=== PATIENT | male | born 1975 | race Hispanic/Latino ===

== ENCOUNTER 2017-09-21 19:21 | Emergency (ER) | payer OTHER ==
[2017-09-21 20:00] LABS: Urine Blood 1+ (NEG); Urine Glucose 2+ (NEG); Urine Protein 2+ (NEG)
[2017-09-21] MEDS ORDERED: NA CHLORIDE 0.9% 1,000 ML ONE (20:26)
[2017-09-21] MEDS ORDERED: INSULIN -REGULAR HUMAN 50 UNIT/0.5 ML ML ONE ×3 (20:28→21:29)
[2017-09-21 20:40] LABS: Potassium 4.3 mEq/L (3.6-5.0)
[2017-09-21 20:43] LABS: Absolute Lymphocytes (CBC) 1.8 K/uL (0.7-4.9); Absolute Monocytes 0.7 K/uL (0.1-1.3); Absolute Neutrophil 5.1 K/uL (1.8-8.0); Basophils % 0.6 % (0-1.3); Eosinophils % 1.2 % (0-4.4); Hematocrit 38.2 % (39.6-49.0); MCH 28.6 pg (27.0-35.0); MCV 85.3 fL (80-100); MPV 8.2 fL (7.6-11.3); Monocytes % 8.8 % (3.3-12.3); RBC Red Blood Cell Count 4.48 M/uL (4.33-5.43)
[2017-09-21] MEDS ORDERED: DOXYCYCLINE 100 MG CAP PO ONE (20:58)
[2017-09-21] MEDS ORDERED: CLINDAMYCIN HCL 150 MG CAP ONE (20:58)
[2017-09-22 00:43] LABS: Potassium 3.6 mEq/L (3.6-5.0)
--- NOTE | 2017-09-22 00:57 | EDPHYS ---
Physician Documentation [facility] Name: Isiah Kidd Age: 42 yrs Sex: Male : 1975 Arrival Date: 09/21/2017 Time: 19:25 Bed 14 Private MD: ED Physician Giovanni Morton HPI: 09/21 20:54 This 42 yrs old Male presents to ER via Ambulatory with complaints of High kb Blood Sugar, Wound Check. 20:54 The patient presents with ulceration. The complaints affect the right foot. Context: kb The problem was sustained at an unknown location, the patient can fully bear weight, the patient is able to ambulate. Onset: The symptoms/episode began/occurred at an unknown time. noticed it today. Modifying factors: The symptoms are alleviated by nothing, the symptoms are aggravated by nothing. Associated signs and symptoms: Pertinent negatives: calf tenderness, fever, nausea, numbness, rash, swelling, tingling, vomiting, warmth, weakness. Severity of symptoms: At their worst the symptoms were moderate, in the emergency department the symptoms are unchanged. The patient has experienced similar episodes in the past. The patient has not recently seen a physician. Historical: - Allergies: 19:40 No Known Allergies; ak1 - Home Meds: 19:40 metformin 1,000 mg Oral tr24 1 tab BID [Active]; ak1 - PMHx: 19:40 Diabetes - NIDDM; ak1 - PSHx: 19:40 Right great toe ulcer hx; ak1 - Immunization history:: Adult Immunizations unknown. - Social history:: Smoking status: Patient/guardian denies using tobacco. ROS: 20:56 Constitutional: Negative for fever, chills, and weight loss, ENT: Negative for injury, kb pain, and discharge, Neck: Negative for injury, pain, and swelling, Cardiovascular: Negative for chest pain, palpitations, and edema, Respiratory: Negative for shortness of breath, cough, wheezing, and pleuritic chest pain, Abdomen/GI: Negative for abdominal pain, nausea, vomiting, diarrhea, and constipation, Back: Negative for injury and pain, Neuro: Negative for headache, weakness, numbness, tingling, and seizure. 20:56 Skin: Positive for ulceration, of the plantar aspect of right first toe. Exam: 20:56 Constitutional: This is a well developed, well nourished patient who is awake, alert, kb and in no acute distress. Head/Face: Normocephalic, atraumatic. Chest/axilla: Normal chest wall appearance and motion. Nontender with no deformity. No lesions are appreciated. Cardiovascular: Regular rate and rhythm with a normal S1 and S2. No gallops, murmurs, or rubs. Normal PMI, no JVD. No pulse deficits. Respiratory: Lungs have equal breath sounds bilaterally, clear to auscultation and percussion. No rales, rhonchi or wheezes noted. No increased work of breathing, no retractions or nasal flaring. Abdomen/GI: Soft, non-tender, with normal bowel sounds. No distension or tympany. No guarding or rebound. No evidence of tenderness throughout. MS/ Extremity: Pulses equal, no cyanosis. Neurovascular intact. Full, normal range of motion. Neuro: Awake and alert, GCS 15, oriented to person, place, time, and situation. Cranial nerves II-XII grossly intact. Motor strength 5/5 in all extremities. Sensory grossly intact. Cerebellar exam normal. Normal gait. 20:59 Skin: lesion(s), noted, and can be described as ulcerated, located on the plantar kb aspect of right first toe. Vital Signs: 19:40 BP 91 / 65; Pulse 93; Resp 18; Temp 98.8(TE); Pulse Ox 98% on R/A; Weight 74.84 kg (R); ak1 Height 5 ft. 11 in. (180.34 cm) (R); Pain 3/10; 22:33 BP 147 / 92; Pulse 88; Resp 18; Pulse Ox 99% on R/A; Pain 0/10; ea 23:00 BP 133 / 93; Pulse 97; Resp 18; Pulse Ox 99% ; ea 09/22 00:00 BP 129 / 88; Pulse 92; Resp 18; Pulse Ox 100% ; ea 01:00 BP 132 / 90; Pulse 90; Resp 18; Temp 97.8(O); Pulse Ox 100% on R/A; Pain 0/10; ea 09/21 19:40 Body Mass Index 23.01 (74.84 kg, 180.34 cm) ak1 MDM: 09/21 20:11 Patient medically screened. kb 20:59 Data reviewed: vital signs, nurses notes. Data interpreted: Pulse oximetry: on room air kb is 98 %. Interpretation: normal. 09/21 19:59 Order name: Urine Dipstick--Ancillary (enter results); Complete Time: 20:18 em1 09/21 20:00 Order name: Basic Metabolic Panel kb 09/21 20:01 Order name: Basic Metabolic Panel; Complete Time: 20:43 EDMS 09/21 20:11 Order name: CBC with Diff; Complete Time: 20:45 kb 09/22 00:27 Order name: Basic Metabolic Panel; Complete Time: 00:44 em1 09/21 19:53 Order name: Blood Glucose Level; Complete Time: 19:58 kb 09/21 21:48 Order name: Blood Glucose Level; Complete Time: 21:57 kb 09/21 22:25 Order name: Recheck Vital Signs; Complete Time: 22:34 snw 09/21 22:54 Order name: Foot Right 3 View XRAY snw Administered Medications: 20:40 Drug: Clindamycin 300 mg Route: PO; ea 21:51 Follow up: Response: No adverse reaction ea 20:40 Drug: Doxycycline 100 mg Route: PO; ea 21:51 Follow up: Response: No adverse reaction ea 20:47 Drug: NS 0.9% 1000 ml Route: IV; Rate: 1000 ml; Site: right antecubital; ea 21:50 Follow up: Response: No adverse reaction; IV Status: Completed infusion ea 21:32 Drug: Insulin Regular Human 5 units {Co-Signature: jd3 (Justen Baugh RN).} Route: ea IVP; Site: right antecubital; 09/22 00:57 Follow up: Response: No adverse reaction ea Point of Care Testing: Blood Glucose: 09/21 19:57 Blood Glucose: 456 mg/dL; ak1 21:57 Blood Glucose: 276 mg/dL; ea Ranges: Critical Glucose Levels:Adult <50 mg/dl or >400 mg/dl <40 mg/dl or >180 mg/dl Disposition: 09/22 01:38 Co-signature as Attending Physician, Giovanni Morton MD. pkliane Disposition: 09/22/17 00:56 Discharged to Home. Impression: Hyperglycemia, unspecified, Unspecified open wound of right great toe without damage to nail. - Condition is Stable. - Discharge Instructions: Skin Ulcer, Hyperglycemia, [id number]-Gziq, Type 2 Diabetes Mellitus, Adult, Ovmn-az-Aeag. - Prescriptions for Clindamycin HCl 300 mg Oral Capsule - take 1 capsule by ORAL route every 6 hours for 10 days; 40 capsule. Keflex 500 mg Oral Capsule - take 1 capsule by ORAL route every 8 hours for 10 days; 30 capsule. Metformin 1,000 mg Oral Tablet - take 1 tablet by ORAL route every 12 hours with morning and evening meals; 20 tablet. - Medication Reconciliation Form, Thank You Letter, Antibiotic Education, Prescription Opioid Use form. - Follow up: Emergency Department; When: As needed; Reason: Worsening of condition. Follow up: Private Physician; When: 2 - 3 days; Reason: Recheck today's complaints, Continuance of care, Re-evaluation by your physician. Signatures: Dispatcher [employer] EDMN Elisa Mckeon, STRIPPER AND OPAQUER APPRENTICE-C STRIPPER AND OPAQUER APPRENTICE-Ckb Giovanni Morton MD MD pkl Therrien, Shelly, FNP-C STRIPPER AND OPAQUER APPRENTICE-Csnw Denise Medel RN RN ak1 Carolina Irene RN RN ea Jonathon Davies RN jd3 Corrections: (The following items were deleted from the chart) 09/21 20:30 19:58 GLUCOSE+C.LAB.BRZ ordered. [facility] EDMN 20:59 20:56 Constitutional: This is a well developed, well nourished patient who is awake, kb alert, and in no acute distress. Head/Face: Normocephalic, atraumatic. kb 09/22 01:26 00:56 09/22/2017 00:56 Discharged to Home. Impression: Hyperglycemia, unspecified; ea Unspecified open wound of right great toe without damage to nail. Condition is Stable. Discharge Instructions: Skin Ulcer, Hyperglycemia, Iatc-uu-Ctno, Type 2 Diabetes Mellitus, Adult, Zkae-lx-Dzfx. Prescriptions for Clindamycin HCl 300 mg Oral Capsule - take 1 capsule by ORAL route every 6 hours for 10 days; 40 capsule, Keflex 500 mg Oral Capsule - take 1 capsule by ORAL route every 8 hours for 10 days; 30 capsule. and Forms are Medication Reconciliation Form, Thank You Letter, Antibiotic Education, Prescription Opioid Use. Follow up: Emergency Department; When: As needed; Reason: Worsening of condition. Follow up: Private Physician; When: 2 - 3 days; Reason: Recheck today's complaints, Continuance of care, Re-evaluation by your physician. snw
--- NOTE | 2017-09-22 00:57 | ER ---
Nurse's Notes [facility] Name: Isiah Kidd Age: 42 yrs Sex: Male : 1975 Arrival Date: 09/21/2017 Time: 19:25 Bed 14 Private MD: Diagnosis: Hyperglycemia, unspecified;Unspecified open wound of right great toe without damage to nail Presentation: 09/21 19:38 Presenting complaint: Patient states: he just came back from [place] and took his last ak1 2 metformin 3 hours ago and needs a prescription for more. pt stated he also needs a prescription for his Lyrica. pt stated 3 hours ago after eating his "meter read HIGH" pt c/o wound under his right great toe. Transition of care: patient was not received from another setting of care. Onset of symptoms is unknown. Initial Sepsis Screen: Does the patient meet any 2 criteria? No. Patient's initial sepsis screen is negative. Does the patient have a suspected source of infection? No. Patient's initial sepsis screen is negative. Care prior to arrival: None. 19:38 Method Of Arrival: Ambulatory ak1 19:38 Acuity: MONIKA 4 ak1 Triage Assessment: 19:40 General: Appears in no apparent distress. Behavior is calm, cooperative. Pain: ak1 Complains of pain in right foot. EENT: No signs and/or symptoms were reported regarding the EENT system. Neuro: Level of Consciousness is awake, alert, obeys commands, Oriented to person, place, time, situation, Radiology Specialist are equal bilaterally Moves all extremities. Gait is steady, Speech is normal, Facial symmetry appears normal. Cardiovascular: No deficits noted. Respiratory: No deficits noted. GI: No signs and/or symptoms were reported involving the gastrointestinal system. : No signs and/or symptoms were reported regarding the genitourinary system. Derm: No signs and/or symptoms reported regarding the dermatologic system. Musculoskeletal: No signs and/or symptoms reported regarding the musculoskeletal system. Historical: - Allergies: 19:40 No Known Allergies; ak1 - Home Meds: 19:40 metformin 1,000 mg Oral tr24 1 tab BID [Active]; ak1 - PMHx: 19:40 Diabetes - NIDDM; ak1 - PSHx: 19:40 Right great toe ulcer hx; ak1 - Immunization history:: Adult Immunizations unknown. - Social history:: Smoking status: Patient/guardian denies using tobacco. Screenin:42 Abuse screen: Denies threats or abuse. Denies injuries from another. Nutritional ak1 screening: No deficits noted. Tuberculosis screening: No symptoms or risk factors identified. Fall Risk None identified. Assessment: 20:15 General: Appears in no apparent distress. Behavior is calm, cooperative, appropriate ea for age. Pain: Denies pain. Neuro: Level of Consciousness is awake, alert, obeys commands, Oriented to person, place, time, situation. Cardiovascular: Patient's skin is warm and dry. Respiratory: Airway is patent Respiratory effort is even, unlabored, Respiratory pattern is regular, symmetrical. GI: No signs and/or symptoms were reported involving the gastrointestinal system. : No signs and/or symptoms were reported regarding the genitourinary system. Derm: Wound noted plantar aspect of right first toe Wound is calloused area noted to top of right toe Other: pt states "it feels mushy". 21:24 Reassessment: Patient and/or family updated on plan of care and expected duration. Pain ea level reassessed. Patient is alert, oriented x 3, equal unlabored respirations, skin warm/dry/pink. 22:22 Reassessment: Patient and/or family updated on plan of care and expected duration. Pain ea level reassessed. Patient is alert, oriented x 3, equal unlabored respirations, skin warm/dry/pink. 23:22 Reassessment: Patient and/or family updated on plan of care and expected duration. Pain ea level reassessed. Patient is alert, oriented x 3, equal unlabored respirations, skin warm/dry/pink. Patient denies pain at this time. 09/22 00:54 Reassessment: Patient and/or family updated on plan of care and expected duration. Pain ea level reassessed. Patient is alert, oriented x 3, equal unlabored respirations, skin warm/dry/pink. Patient denies pain at this time. Patient states feeling better. 01:22 Reassessment: Patient and/or family updated on plan of care and expected duration. Pain ea level reassessed. Patient is alert, oriented x 3, equal unlabored respirations, skin warm/dry/pink. Discharge instructions given to patient, verbalized the understanding of instruction. Patient denies pain at this time. Patient states feeling better. Vital Signs: 09/21 19:40 BP 91 / 65; Pulse 93; Resp 18; Temp 98.8(TE); Pulse Ox 98% on R/A; Weight 74.84 kg (R); ak1 Height 5 ft. 11 in. (180.34 cm) (R); Pain 3/10; 22:33 BP 147 / 92; Pulse 88; Resp 18; Pulse Ox 99% on R/A; Pain 0/10; ea 23:00 BP 133 / 93; Pulse 97; Resp 18; Pulse Ox 99% ; ea 09/22 00:00 BP 129 / 88; Pulse 92; Resp 18; Pulse Ox 100% ; ea 01:00 BP 132 / 90; Pulse 90; Resp 18; Temp 97.8(O); Pulse Ox 100% on R/A; Pain 0/10; ea 09/21 19:40 Body Mass Index 23.01 (74.84 kg, 180.34 cm) ak1 ED Course: 09/21 19:25 Patient arrived in ED. do 19:40 Triage completed. ak1 19:40 Arm band placed on Patient placed in waiting room, Patient notified of wait time. ak1 19:42 Patient has correct armband on for positive identification. ak1 19:46 Urine collected: clean catch specimen, clear. ak1 20:11 Elisa Mckeon FNP-C is PHCP. kb 20:11 Giovanni Morton MD is Attending Physician. kb 20:24 Carolina Irene RN is Primary Nurse. ea 20:30 Inserted saline lock: 18 gauge in right antecubital area, using aseptic technique. ea Blood collected. 21:58 PHCP role handed off by Elisa Mckeon FNP-C snw 21:58 Nataly Snider FNP-C is PHCP. snw 22:38 Basic Metabolic Panel Sent. ea 23:09 X-ray completed. Portable x-ray completed in exam room. Patient tolerated procedure jw2 well. 23:57 Foot Right 3 View XRAY In Process Unspecified. EDMS 09/22 00:58 No provider procedures requiring assistance completed. ea 01:23 IV discontinued, intact, bleeding controlled, No redness/swelling at site. Pressure ea dressing applied. Administered Medications: 09/21 20:40 Drug: Clindamycin 300 mg Route: PO; ea 21:51 Follow up: Response: No adverse reaction ea 20:40 Drug: Doxycycline 100 mg Route: PO; ea 21:51 Follow up: Response: No adverse reaction ea 20:47 Drug: NS 0.9% 1000 ml Route: IV; Rate: 1000 ml; Site: right antecubital; ea 21:50 Follow up: Response: No adverse reaction; IV Status: Completed infusion ea 21:32 Drug: Insulin Regular Human 5 units {Co-Signature: [email or web address] (Justen Baugh RN).} Route: ea IVP; Site: right antecubital; 09/22 00:57 Follow up: Response: No adverse reaction ea Point of Care Testing: Blood Glucose: 09/21 19:57 Blood Glucose: 456 mg/dL; ak1 21:57 Blood Glucose: 276 mg/dL; ea Ranges: Outcome: 09/22 00:56 Discharge ordered by MD. snw 01:22 Discharged to home ambulatory, with family. ea 01:22 Condition: improved 01:22 Discharge instructions given to patient, Instructed on discharge instructions, follow up and referral plans. medication usage, Demonstrated understanding of instructions, follow-up care, medications, Prescriptions given X 3. 01:26 Patient left the ED. ea Signatures: Dispatcher [employer] EDMS Elisa Mckeon, CLIENT PROJECT COORDINATOR-C CLIENT PROJECT COORDINATOR-Ckb Nataly Snider CLIENT PROJECT COORDINATOR-C CLIENT PROJECT COORDINATOR-CsnDenise Maldonado, RN RN ak1 Sena Burleson Jenni jw2 Carolina Irene RN RN ea Jonathon Davies RN jd3 Corrections: (The following items were deleted from the chart) 09/21 23:01 20:15 Derm: Wound noted plantar aspect of right first toe ea ea
[2017-09-22 01:33] VITALS: O2SAT 100
[2017-09-22 01:34] VITALS: BP 132/90; TEMP 97.8
--- NOTE | 2017-09-22 14:33 | RAD REPORT ---
EXAM DESCRIPTION: RAD - Foot Right 3 View - 09/21/2017 11:57 pm CLINICAL HISTORY: Diabetic, foot pain COMPARISON: 01/17/2016 FINDINGS: Demineralization of the distal phalanx of the great toe is present with adjacent soft tiss ue swelling, likely representing osteomyelitis. A fracture is not seen. Heavy vascular calcification noted. IMPRESSION: Demineralization of the distal phalanx of the great toe likely represents osteomyelitis. Followup MR imaging can be obtained for confirmation.
== END 2017-09-22 01:26 | disposition home or self-care (01) ==
LOC: ER 19:21
DX: E11.65 Type 2 diabetes mellitus with hyperglycemia (principal); S91.101A Unspecified open wound of right great toe without damage to nail, initial encounter
CPT/HCPCS: 36415; 80048; 81003; 82962; 85025; 96361; 96374; 99284; J7030

== ENCOUNTER 2024-04-15 10:36 | Observation (INO) | payer OTHER ==
[2024-04-15] MEDS ORDERED: GLUCAGON 1 MG/VIAL ONE (10:45)
[2024-04-15 11:09] LABS: Absolute Basophils 0.1 K/uL (0-0.5); Absolute Eosinophils 0.1 K/uL (0-0.5); Absolute Lymphocytes (CBC) 0.7 K/uL (0.7-4.9); Absolute Monocytes 0.9 K/uL (0.1-1.3); Absolute Neutrophil 9.4 K/uL (1.8-8.0); Basophils % 0.7 % (0-1.3); Eosinophils % 0.5 % (0-4.4); Hematocrit 35.6 % (39.6-49.0); Hemoglobin 11.6 g/dL (13.6-17.9); Lymphocytes % 6.5 % (15.3-44.8); MCH 30.8 pg (27.0-35.0); MCHC 32.6 g/dL (32.0-36.0); MCV 94.5 fL (80-100); MPV 7.7 fL (7.6-11.3); Monocytes % 8.3 % (3.3-12.3); Nucleated Red Blood Cells % 0.1 % (0-0); Platelets 241 thou/uL (152-406); RBC Red Blood Cell Count 3.76 M/uL (4.33-5.43); Red Cell Distribution Width 16.4 % (12.1-15.2)
[2024-04-15 11:23] LABS: Anion Gap 19.2 mEq/L (5.0-15.0)
[2024-04-15 11:25] LABS: Potassium 6.2 mEq/L (3.5-5.1)
[2024-04-15] MEDS ORDERED: INSULIN REGULAR (HUMAN) 100 UNIT/ML ONE (11:37)
[2024-04-15] MEDS ORDERED: SOD POLYSTYREN SUL 15 GM/60 ML UCUP ONE (11:37)
[2024-04-15] MEDS ORDERED: D50W 25 GM/50 ML SYRINGE IV ONE (11:38)
--- NOTE | 2024-04-15 11:49 | ER ---
Nurse's Notes [facility] Name: Isiah Kidd Age: 49 yrs Sex: Male : 1975 Arrival Date: 04/15/2024 Time: 10:36 Bed 2 Private MD: Diagnosis: Hypoglycemia, unspecified;End stage renal disease;Hyperkalemia Presentation: 04/15 10:37 Chief complaint: EMS states: pt was on his way to dialysis when he became lethargic and kc6 confused. BGL = 49. pt was given oral glucose x2, BGL increased to 73. Coronavirus screen: At this time, the client does not indicate any symptoms associated with coronavirus-19. Ebola Screen: No symptoms or risks identified at this time. Initial Sepsis Screen: Does the patient meet any 2 criteria? No. Patient's initial sepsis screen is negative. Does the patient have a suspected source of infection? No. Patient's initial sepsis screen is negative. Risk Assessment: Do you want to hurt yourself or someone else? Patient reports no desire to harm self or others. Onset of symptoms was April 15, 2024. 10:37 Method Of Arrival: EMS: [facility] kc6 10:37 Acuity: MONIKA 3 kc6 Historical: - Allergies: 10:39 No Known Allergies; kc6 - PMHx: 10:39 Diabetes - NIDDM; Dialysis (T; Hypertensive disorder; kidney disease; [place]- Right kc6 Arm; - PSHx: 10:39 RIGHT BKA; kc6 - Immunization history:: Adult Immunizations up to date. - Infectious Disease History:: Denies. - Social history:: Smoking status: Patient denies any tobacco usage or history of. - Family history:: not pertinent. - Hospitalizations: : No recent hospitalization is reported. Screenin:50 [facility] ED Fall Risk Assessment (Adult) History of falling in the last 3 months, kc6 including since admission No falls in past 3 months (0 pts) Confusion or Disorientation No (0 pts) Intoxicated or Sedated No (0 pts) Impaired Gait Yes (1 pt) Mobility Assist Device Used Yes (1 pt) Altered Elimination No (0 pt) Score/Fall Risk Level 0 - 2 = Low Risk Oriented to surroundings, Maintained a safe environment. Abuse screen: Denies threats or abuse. Denies injuries from another. Nutritional screening: No deficits noted. Tuberculosis screening: No symptoms or risk factors identified. Assessment: 10:36 General: Appears in no apparent distress. comfortable, well groomed, well developed, kc6 Behavior is calm, cooperative, appropriate for age, drowsy. Pain: Denies pain. Neuro: Level of Consciousness is awake, alert, obeys commands, Oriented to person, place, time, situation, Appropriate for age. Cardiovascular: Denies chest pain, Capillary refill < 3 seconds Dialysis shunt: in the right arm, with palpable thrill, with auscultated bruit, with no erythema, with no edema, no bleeding noted. Respiratory: Airway is patent Trachea midline Respiratory effort is even, unlabored, Respiratory pattern is regular, symmetrical. GI: Abdomen is round non-distended, Abd is soft and non tender X 4 quads. Reports diarrhea, Patient currently denies abdominal pain, nausea, vomiting. : No signs and/or symptoms were reported regarding the genitourinary system. EENT: No signs and/or symptoms were reported regarding the EENT system. Derm: No signs and/or symptoms reported regarding the dermatologic system. Skin is intact, is healthy with good turgor, Skin is pink, warm \T\ dry. Musculoskeletal: No signs and/or symptoms reported regarding the musculoskeletal system. Amputation of right leg. 11:36 Reassessment: Patient appears in no apparent distress at this time. No changes from kc6 previously documented assessment. Patient and/or family updated on plan of care and expected duration. Pain level reassessed. Patient is alert, oriented x 3, equal unlabored respirations, skin warm/dry/pink. 12:20 Reassessment: Patient appears in no apparent distress at this time. No changes from kc6 previously documented assessment. Patient and/or family updated on plan of care and expected duration. Pain level reassessed. Patient is alert, oriented x 3, equal unlabored respirations, skin warm/dry/pink. 14:00 Reassessment: Patient appears in no apparent distress at this time. No changes from kc6 previously documented assessment. Patient and/or family updated on plan of care and expected duration. Pain level reassessed. Patient is alert, oriented x 3, equal unlabored respirations, skin warm/dry/pink. Patient states feeling better. Patient states symptoms have improved. 15:55 Reassessment: Patient appears in no apparent distress at this time. Patient and/or jb4 family updated on plan of care and expected duration. Pain level reassessed. Patient is alert, oriented x 3, equal unlabored respirations, skin warm/dry/pink. Vital Signs: 10:37 BP 180 / 91; Pulse 67; Resp 18 S; Temp 97.7(O); Weight 117.03 kg (M); Height 5 ft. 11 kc6 in. (R); Pain 0/10; 12:21 BP 166 / 88; Pulse 78; Resp 16 S; Pulse Ox 99% on R/A; kc6 14:00 BP 168 / 88; Pulse 84; Resp 19 S; Pulse Ox 96% on R/A; kc6 10:37 Body Mass Index 35.98 (117.03 kg, 180.34 cm) kc6 10:37 Pain Scale: Adult 6 ED Course: 10:36 Patient arrived in ED. rn 10:37 Efrain Azul MD is Attending Physician. rn 10:38 Triage completed. kc6 10:39 Arm band placed on. kc6 10:49 Patient has correct armband on for positive identification. Bed in low position. Call kc6 light in reach. Side rails up X2. Pulse ox on. NIBP on. Door closed. Noise minimized. Lights dimmed. Pillow given. PO fluids given. Diet: Patient given snack. Tolerated well. 10:49 Patient maintains SpO2 saturation greater than 95% on room air. kc6 10:51 Lorena Bautista, RN is Primary Nurse. kc6 11:00 Initial lab(s) drawn, by me, sent to lab. Inserted saline lock: 22 gauge in left ap3 antecubital area, using aseptic technique. Blood collected. Flushed with 10 mL NS. 11:01 Basic Metabolic Panel Sent. ap3 11:01 CBC with Diff Sent. ap3 11:20 Assisted to bedside commode. kc6 11:34 Assisted to bedside commode. kc6 11:47 Ashutosh Lawson is Hospitalizing Provider. rn 13:48 Accessed peripheral vein via ultrasound, utilizing dynamic ultrasound technique Clean \T\ cm10 dry. Dressing intact. Good blood return. Flushes easily. 20G left forearm. Missed attempt(s): 20 gauge in left hand. Bleeding controlled, band aid applied, catheter tip intact. 15:55 Provided Education on: need for admit. jb4 15:55 No provider procedures requiring assistance completed. Patient admitted, IV remains in jb4 place. Administered Medications: 11:02 Drug: Glucagon IVP 1 mg IVP once Route: IVP; Site: right forearm; kc6 11:33 Follow up: Response: No adverse reaction; Blood sugar is elevated kc6 11:52 Drug: Insulin Regular Human IVP 5 units IVP once {Co-Signature: [email or web address] (calrin Mendez RN).} Route: IVP; Site: left antecubital; 12:48 Follow up: Response: No adverse reaction kc6 11:52 Drug: D50W IVP 50 ml IVP once; (1 amp) Route: IVP; Site: left antecubital; kc6 12:48 Follow up: Response: No adverse reaction; Blood sugar is elevated kc6 11:52 Drug: Kayexalate PO 15 grams PO once Route: PO; kc6 12:20 Follow up: Response: No adverse reaction kc6 13:04 Drug: Albuterol Inhalation 7.5 mg Inhalation once Route: Inhalation; kc6 14:00 Drug: Sodium Bicarbonate IVP 1 amp IVP once; (50 mL); equals 50 mEq Route: IVP; Site: kc6 left forearm; Medication: 15:55 VIS not applicable for this client. jb4 Outcome: 11:48 Decision to Hospitalize by Provider. rn 15:55 Admitted to Med/surg accompanied by nurse, via wheelchair, room 221, with chart, jb4 15:55 Condition: stable 15:55 Discharge instructions given to patient, Instructed on the need for admit, Demonstrated understanding of instructions, 15:56 Patient left the ED. jb4 Signatures: Efrain Azul MD MD rn Bryson, James, RN RN jb4 Ana Perales RN RN ap3 Campbell, Kaitlyn, RN RN kc6 Yajaira Mendez RN RN cm10 Yajaira Mendez RN cm10 Corrections: (The following items were deleted from the chart) 10:39 10:39 PMHx: Dialysis (T; kc6 kc6
--- NOTE | 2024-04-15 11:49 | EDPHYS ---
Physician Documentation [facility] Name: Isiah Kidd Age: 49 yrs Sex: Male : 1975 Arrival Date: 04/15/2024 Time: 10:36 Bed 2 Private MD: ED Physician Efrain Azul HPI: 04/15 11:45 This 49 yrs old Male presents to ER via EMS with complaints of Low Blood Sugar.rn 11:45 The patient or guardian reports hypoglycemia. Onset: The symptoms/episode rn began/occurred today. Current symptoms: In the emergency department the patient's symptoms have improved. Patient reports has missed last 2 sessions of dialysis. Did not eat much today and took his insulin prior to session, was altered and showed decreased responsiveness so 911 called after oral glucose given. Glucose is up to 70s and patient feels better. Denies recent illness. No fever or chills. No vomiting. No abdominal pain. No chest pain.. Historical: - Allergies: 10:39 No Known Allergies; kc6 - PMHx: 10:39 Diabetes - NIDDM; Dialysis (T; Hypertensive disorder; kidney disease; [place]- Right kc6 Arm; - PSHx: 10:39 RIGHT BKA; kc6 - Immunization history:: Adult Immunizations up to date. - Infectious Disease History:: Denies. - Social history:: Smoking status: Patient denies any tobacco usage or history of. - Family history:: not pertinent. - Hospitalizations: : No recent hospitalization is reported. ROS: 11:45 Constitutional: Negative for fever, chills, and weight loss, Cardiovascular: Negative rn for chest pain, palpitations, and edema, Respiratory: Negative for shortness of breath, cough, wheezing, and pleuritic chest pain, Abdomen/GI: Negative for abdominal pain, nausea, vomiting, diarrhea, and constipation, Back: Negative for injury and pain, MS/Extremity: Negative for injury and deformity, Skin: Negative for injury, rash, and discoloration, Neuro: Negative for headache, weakness, numbness, tingling, and seizure, Exam: 11:45 Constitutional: This is a well developed, well nourished patient who is awake, alert, rn and in no acute distress. Cardiovascular: Regular rate and rhythm. No pulse deficits. Respiratory: No increased work of breathing, no retractions or nasal flaring. Abdomen/GI: Soft, non-tender MS/ Extremity: Pulses equal, no cyanosis. Neurovascular intact. Full, normal range of motion. Equal circumference. Neuro: Awake and alert, GCS 15, oriented to person, place, time, and situation. Cranial nerves II-XII grossly intact. Motor strength 5/5 in all extremities. Sensory grossly intact. Vital Signs: 10:37 BP 180 / 91; Pulse 67; Resp 18 S; Temp 97.7(O); Weight 117.03 kg (M); Height 5 ft. 11 kc6 in. (R); Pain 0/10; 12:21 BP 166 / 88; Pulse 78; Resp 16 S; Pulse Ox 99% on R/A; kc6 14:00 BP 168 / 88; Pulse 84; Resp 19 S; Pulse Ox 96% on R/A; kc6 10:37 Body Mass Index 35.98 (117.03 kg, 180.34 cm) kc6 10:37 Pain Scale: Adult kc6 MDM: 10:37 Medical Screening Exam initiated rn 11:45 Differential diagnosis: Hypothyroidism, end-stage renal disease, missed multiple rn sessions. Data reviewed: vital signs, nurses notes, lab test result(s), and as a result, I will admit patient. Consideration of Admission/Observation Patient was admitted/placed on observation. Escalation of care including admission/observation considered. Counseling: I had a detailed discussion with the patient and/or guardian regarding the historical points, exam findings, and any diagnostic results supporting the discharge/admit diagnosis, lab results, radiology results, the need for further work-up and treatment in the hospital. Response to treatment: the patient's symptoms have markedly improved after treatment. 11:45 ED course: I personally spent 35 minutes engaged in work directly related to the rn individual patient's care. This does not include any time spent performing procedures. The patient has been deemed critically ill because of severe hypoglycemia as well as hyperkalemia requiring emergent dialysis and admission to hospital.. 04/15 10:37 Order name: CBC with Diff; Complete Time: rn 04/15 10:37 Order name: Basic Metabolic Panel; Complete Time: rn 04/15 10:56 Order name: Glucose, Ancillary Testing; Complete Time: EDMS 04/15 11:42 Order name: Glucose, Ancillary Testing; Complete Time: 12:07 EDMS 04/15 12:53 Order name: Glucose, Ancillary Testing; Complete Time: 13:02 EDMS 04/15 10:37 Order name: IV Start; Complete Time: 11:01 rn 04/15 10:37 Order name: Glucose Level; Complete Time: 10:49 rn 04/15 10:37 Order name: PO challenge; Complete Time: 10:49 rn 04/15 10:37 Order name: Cardiac monitoring; Complete Time: 10:39 rn 04/15 10:37 Order name: O2 Sat Monitoring; Complete Time: 10:39 rn Administered Medications: 11:02 Drug: Glucagon IVP 1 mg IVP once Route: IVP; Site: right forearm; kc6 11:33 Follow up: Response: No adverse reaction; Blood sugar is elevated kc6 11:52 Drug: Insulin Regular Human IVP 5 units IVP once {Co-Signature: cm10 (carlin Mendez RN).} Route: IVP; Site: left antecubital; 12:48 Follow up: Response: No adverse reaction kc6 11:52 Drug: D50W IVP 50 ml IVP once; (1 amp) Route: IVP; Site: left antecubital; kc6 12:48 Follow up: Response: No adverse reaction; Blood sugar is elevated kc6 11:52 Drug: Kayexalate PO 15 grams PO once Route: PO; kc6 12:20 Follow up: Response: No adverse reaction kc6 13:04 Drug: Albuterol Inhalation 7.5 mg Inhalation once Route: Inhalation; kc6 14:00 Drug: Sodium Bicarbonate IVP 1 amp IVP once; (50 mL); equals 50 mEq Route: IVP; Site: [facility] left forearm; Disposition Summary: 04/15/24 11:48 Hospitalization Ordered Notes: Hospitalization Status: Inpatient Admission rn Provider: Ashutosh Lawson rn Location: Telemetry/[facility]Sur (Inpatient) rn Condition: Stable rn Problem: new rn Symptoms: have improved rn Bed/Room Type: Standard rn Room Assignment: 221(04/15/24 14:16) eb Diagnosis - Hypoglycemia, unspecified rn - End stage renal disease rn - Hyperkalemia rn Forms: - Medication Reconciliation Form rn - SBAR form rn - Leadership 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 Total time: 35 minutes rn Signatures: Dispatcher [employer] EDMS Efrain Azul MD MD rn Attema, Lee, IRONER SOCK-C IRONER SOCK-Cla1 Katherine Archer Kaitlyn, RN RN kc6 Yajaira Mendez RN [email or web address] Corrections: (The following items were deleted from the chart) 10:37 10:37 CBC+H.LAB.BRZ ordered. EDMS EDMS 10:37 10:37 BASIC METABOLIC PANEL+C.LAB.BRZ ordered. EDMS EDMS 10:39 10:39 PMHx: Dialysis (T; kc6 kc6 14:16 11:48 rn rosalio
[2024-04-15] MEDS ORDERED: ALBUTEROL 2.5 MG/3 ML NEB SOL ONE (12:51)
[2024-04-15] MEDS ORDERED: SODIUM BICARB 50 MEQ/50ML VIAL ONE (13:13)
--- NOTE | 2024-04-15 13:47 | P.HP ---
Certification for Inpatient Patient admitted to: Observation With expected LOS: <2 Midnights Patient will require the following post-hospital care: None Practitioner: I am a practitioner with admitting privileges, knowledge of patient current condition, hospital course, and medical plan of care. Services: Services provided to patient in accordance with Admission requirements found in Title 42 Section 412.3 of the Code of Federal Regulations Patient History Date of Service: 04/15/24 Reason for admission: Hyperkalemia, hypoglycemia History of Present Illness: 49-year-old male with history of insulin-dependent diabetes, ESRD on HD, hypertension presents to the emergency department with chief complaint of persistent hypoglycemia. He had missed hemodialysis and was at his dialysis center today when it was noted that he was hypoglycemic, EMS was called. Blood sugar was 49 on arrival, he had gotten 2 doses of oral glucose. Patient was evaluated in the emergency department his labs were significant for hyperglycemia, hyperkalemia with a potassium of 6.2. His glucose has improved and is currently 170, his hyperkalemia was treated with Kayexalate, IV insulin, dextrose, sodium bicarb, albuterol in the ED. Case was discussed with his negative notcher who will see him in the hospital. 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 - Family History Mother -: Diabetes - Social History Alcohol use: Yes CD- Drugs: Yes Caffeine use: Yes Review of Systems 10-point ROS is otherwise unremarkable General: Weakness, Malaise Physical Examination - Physical Exam General: Alert, In no apparent distress, Oriented x3 HEENT: Atraumatic, PERRLA, EOMI Neck: Supple, 2+ carotid pulse no bruit, No LAD Respiratory: Clear to auscultation bilaterally, Normal air movement Cardiovascular: Regular rate/rhythm, Normal S1 S2 Gastrointestinal: Normal bowel sounds, No tenderness Musculoskeletal: No tenderness Integumentary: No rashes Neurological: Normal gait, Normal speech, Normal strength at 5/5 x4 extr, Normal affect - Studies Laboratory Data (last 24 hrs) 04/15/24 04/15/24 10:59 10:59 WBC 11.20 H Hgb 11.6 L Hct 35.6 L Plt Count 241 Sodium 133 L Potassium 6.2 H* BUN 76 H Creatinine 12.60 H Glucose 70 L Assessment and Plan - Plan Assessment: ESRD on HD with noncompliance/hyperkalemia Diabetes mellitus type 2insulin-dependent with hypoglycemia Hypertension Plan: ESRD on HD with noncompliance/hyperkalemia Discussed case with patient's negative notcher Received medications for hyperkalemia in ED Repeat potassium at 1600, notify nephrology of results If potassium is able to be reduced with medical management plan on HD in the morning If potassium persistently elevated may need inpatient HD tonight Diabetes mellitus type 2insulin-dependent with hypoglycemia Blood sugar stabilized Patient is on Lantus and sliding scale He has been tolerating p.o. Every 4 hours blood sugar monitoring during hospitalization Hypertension Continue home medications when verified DVT PPX: Heparin subcu Code status: Full Discharge Plan: Home Plan to discharge in: 24 Hours - Advance Directives Does patient have a Living Will: No Does patient have a Durable POA for Healthcare: No - Code Status/Comfort Care Code Status Assessed: Yes (Full code) Critical Care: No Time Spent Managing Pts Care (In Minutes): 53
[2024-04-15 16:51] LABS: Anion Gap 18.2 mEq/L (5.0-15.0); Potassium 5.2 mEq/L (3.5-5.1)
[2024-04-15 17:00] VITALS: BMI 35.9
[2024-04-15] MEDS ORDERED: D10W 125 ML IV PRN (17:16)
[2024-04-15] MEDS ORDERED: GLUCAGON 1 MG/VIAL IM PRN (17:16)
[2024-04-15] MEDS ORDERED: PNEUMOCOCCAL VACCINE 0.5 ML IMVAC ONE (18:00)
--- NOTE | 2024-04-15 19:19 | P.CNS ---
Date of Consult: 04/15/24 Reason for Consult: ESRD, missed HD, hyperkalemia, HTN Requesting Physician: Mynor Kessler Chief Complaint: Hyperkalemia, hypoglycemia History of Present Illness: 49-year-old male with history of insulin-dependent diabetes, ESRD on iHD at the [facility] unit with last OP HD Sat, hx of missed treatments due to intermittent diarrhea who was referred from the dialysis unit this AM for hypoglycemia with FSBG < 50 and pt being altered from baseline. Pt received a few doses of oral glucose, he denies freq low BG episodes but is taking a larger dose of short acting insulin relative to basal. Allergies No Known Drug Allergies Allergy (Mild, Verified 12/26/15 10:45) Unknown No Known Allergies Allergy (Uncoded 09/22/17 01:30) Unknown Home Medications: Amlodipine [Norvasc] 2.5 mg PO DAILY 04/15/24 Insulin Glargine,Hum.rec.anlog [Lantus] 20 unit SQ BEDTIME 04/15/24 Insulin Lispro [Humalog] 6 unit SQ TID 04/15/24 Losartan/Hydrochlorothiazide [Losartan-Hctz 50-12.5 mg Tab] 1 tab PO BID 04/15/24 - Past Medical/Surgical History Diabetic: Yes -: DM-Type 2 -: Cocaine abuse -: Hypertension -: ESRD on HD followed by Dr. 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 - Family History Mother Medical History: Hypertension, Diabetes, Cancer - Social History Smoking Status: Never smoker Alcohol use: No CD- Drugs: No Caffeine use: No Place of Residence: Home Review of Systems General: Unremarkable Eyes: Unremarkable ENT: Unremarkable Cardiovascular: Unremarkable Gastrointestinal: Diarrhea Genitourinary: Unremarkable Musculoskeletal: Unremarkable Integumentary: Unremarkable Neurological: Unremarkable Physical Examination Temp Pulse Resp BP Pulse Ox 97.8 F 86 18 155/65 H 90 L 04/15/24 16:00 04/15/24 16:00 04/15/24 16:00 04/15/24 16:00 04/15/24 16:00 General: Alert, In no apparent distress, Cooperative HEENT: Atraumatic, Normocephalic Neck: Supple Respiratory: Normal air movement, Other (no wheezing) Cardiovascular: No edema, Regular rate/rhythm Gastrointestinal: Soft and benign, Non-distended, No tenderness Musculoskeletal: No contractures, Other (Rt BKA) Integumentary: No rashes Neurological: Normal speech, Normal tone, Normal affect Laboratory Data (last 24 hrs) 04/15/24 04/15/24 10:59 10:59 WBC 11.20 H Hgb 11.6 L Hct 35.6 L Plt Count 241 Sodium 133 L Potassium 6.2 H* BUN 76 H Creatinine 12.60 H Glucose 70 L Conclusions/Impression: A/P) 1. ESRD 2nd to DM/HTN, last OP HD Sat, missed HD Tues. Dialysis staff not avail for HD today so treatment postponed until AM, see orders for details. Pt in stable condition 2. Hyperkalemia -treated medically, will dialyze with low K bath. Pt is likely mostly anephric with Cr level > 12 mg/dl so ok to use ARB despite hyperkalemia. Cont diet control 3. Hypoglycemia episode -pt's bolus insulin dose should be lowered and basal Insulin can be raised/adjusted accordingly 4. Chronic malignant HTN -raise CCB dose and switch to bedtime. He does not need to be on HCTZ with ARB, does not benefit from it, replace with Losartan or any other generic ARB on discharge 5. Chronic intermittent diarrhea, with rounds of Abx exposure in prior mo -check stool for c diff and culture
[2024-04-15] MEDS: HEPARIN 5000 UNIT/ML 1 ML VIAL SQ SCH (20:19)
[2024-04-15] MEDS: LOSARTAN POTASSIUM 50 MG TABLET PO SCH (20:19)
[2024-04-15] MEDS: AMLODIPINE 2.5 MG TAB PO SCH (20:19)
[2024-04-15] MEDS: INSULIN REGULAR (HUMAN) 100 UNIT/ML SQ SCH (20:41)
[2024-04-15] MEDS ORDERED: LOSARTAN/HCTZ 50-12.5 PO SCH (21:00)
[2024-04-15] MEDS: ACETAMINOPHEN 325 MG TABLET PO PRN (23:38)
[2024-04-16 05:24] LABS: Absolute Basophils 0.1 K/uL (0-0.5); Absolute Eosinophils 0.1 K/uL (0-0.5); Absolute Lymphocytes (CBC) 0.9 K/uL (0.7-4.9); Absolute Monocytes 0.8 K/uL (0.1-1.3); Basophils % 0.9 % (0-1.3); Eosinophils % 0.7 % (0-4.4); Hematocrit 32.4 % (39.6-49.0); Hemoglobin 10.5 g/dL (13.6-17.9); Lymphocytes % 10.6 % (15.3-44.8); MCH 30.8 pg (27.0-35.0); MCHC 32.3 g/dL (32.0-36.0); MCV 95.2 fL (80-100); MPV 7.9 fL (7.6-11.3); Monocytes % 9.5 % (3.3-12.3); Neutrophils % 78.3 % (41.7-73.7); Platelets 207 thou/uL (152-406); Red Cell Distribution Width 17.1 % (12.1-15.2)
[2024-04-16] MEDS ORDERED: AMLODIPINE 2.5 MG TAB PO SCH (09:00)
--- NOTE | 2024-04-16 09:21 | P.DS ---
Admission Date: 04/15/24 Discharge Date: 04/16/24 Disposition: ROUTINE DISCHARGE Discharge Condition: GOOD Reason for Admission: Hyperkalemia, hypoglycemia Consultations: Nephrology- Dr. Jhaveri Brief History of Present Illness: 49-year-old male with history of insulin-dependent diabetes, ESRD on HD, hypertension presents to the emergency department with chief complaint of persistent hypoglycemia. He had missed hemodialysis and was at his dialysis center today when it was noted that he was hypoglycemic, EMS was called. Blood sugar was 49 on arrival, he had gotten 2 doses of oral glucose. Patient was evaluated in the emergency department his labs were significant for hyperglycemia, hyperkalemia with a potassium of 6.2. His glucose has improved and is currently 170, his hyperkalemia was treated with Kayexalate, IV insulin, dextrose, sodium bicarb, albuterol in the ED. Case was discussed with his commercial pest control technician who will see him in the hospital. Hospital Course: Patient was admitted to the hospital for hyperkalemia, ESRD, hypoglycemia. He was treated medically initially for his hyperkalemia and subsequently underwent hemodialysis. His glucose has remained stable and he has been tolerating a diet. He was seen by his commercial pest control technician who recommended reducing bolus dose insulin and increasing his basal as necessary, also his losartan/hydrochlorothiazide will be changed to just losartan as the hydrochlorothiazide will not benefit him further per nephrology. New prescription for losartan sent to [facility] in [place] Discontinue losartan/hydrochlorothiazide Follow-up with your primary care doctor in 1 to 2 weeks Continue outpatient hemodialysis as scheduled Reduce the dose of your bolus/short acting insulin May increase basal insulin as necessary to control blood sugars Vital Signs/Physical Exam: Temp Pulse Resp BP Pulse Ox 98.6 F 86 18 169/81 H 94 04/16/24 04:00 04/16/24 04:00 04/16/24 04:00 04/16/24 04:00 04/16/24 04:00 General: Alert, In no apparent distress, Oriented x3 HEENT: Atraumatic, PERRLA Neck: Supple, JVD not distended Respiratory: Clear to auscultation bilaterally, Normal air movement Cardiovascular: Regular rate/rhythm, Normal S1 S2 Gastrointestinal: Normal bowel sounds, No tenderness Musculoskeletal: No tenderness Integumentary: No rashes Neurological: Normal speech, Normal tone Laboratory Data at Discharge: WBC 8.90 thou/uL (4.3-10.9) 04/16/24 05:03 Hgb 10.5 g/dL (13.6-17.9) L D 04/16/24 05:03 Hct 32.4 % (39.6-49.0) L 04/16/24 05:03 Plt Count 207 thou/uL (152-406) 04/16/24 05:03 Sodium 133 mEq/L (136-145) L 04/16/24 05:03 Potassium 5.0 mEq/L (3.5-5.1) 04/16/24 05:03 BUN 86 mg/dL (7-18) H 04/16/24 05:03 Creatinine 13.80 mg/dL (0.70-1.30) H 04/16/24 05:03 Glucose 125 mg/dL (74-106) H 04/16/24 05:03 Home Medications: Amlodipine [Norvasc*] 2.5 mg PO DAILY 04/15/24 Insulin Glargine,Hum.rec.anlog [Lantus] 20 unit SQ BEDTIME 04/15/24 Insulin Lispro [Humalog] 6 unit SQ TID 04/15/24 Losartan Potassium [Cozaar*] 50 mg PO BID #60 tab 04/16/24 New Medications: Losartan Potassium [Cozaar*] 50 mg PO BID #60 tab Physician Discharge Instructions: Patient was admitted to the hospital for hyperkalemia, ESRD, hypoglycemia. He was treated medically initially for his hyperkalemia and subsequently underwent hemodialysis. His glucose has remained stable and he has been tolerating a diet. He was seen by his commercial pest control technician who recommended reducing bolus dose insulin and increasing his basal as necessary, also his losartan/hydrochlorothiazide will be changed to just losartan as the hydrochlorothiazide will not benefit him further per nephrology. New prescription for losartan sent to [facility] in [place] Discontinue losartan/hydrochlorothiazide Follow-up with your primary care doctor in 1 to 2 weeks Continue outpatient hemodialysis as scheduled Reduce the dose of your bolus/short acting insulin May increase basal insulin as necessary to control blood sugars Diet: Renal Activity: Ad michael Followup: MARLINE DIXON [Primary Care Provider] - 1 Week Maxmi Jhaveri [ACTIVE - CAN ADMIT] - 1-2 Weeks Time spent managing pt's care (in minutes): 38
[2024-04-16 09:27] VITALS: O2SAT 94
[2024-04-16] MEDS: LOPERAMIDE HCL 2 MG CAPSULE PO STA (12:42)
[2024-04-16 13:45] VITALS: BP 156/86; TEMP 97.5
[2024-04-16 15:12] LABS: Hepatitis B Surface Ab - Quant 26.99 mIU/mL (<8.0); Hepatitis B surface AG Interp. Nonreactive (Nonreactive)
[2024-04-16 15:13] LABS: HBsAG Nonreactive Report Report
== END 2024-04-16 18:08 | disposition home or self-care (01) ==
LOC: ER 10:36 → ERHOLD 12:25 → 2ND 14:44
PROVIDERS: ADMIT Internal Medicine; ATTEND Internal Medicine
DX: N18.6 End stage renal disease (principal); E87.5 Hyperkalemia; E11.649 Type 2 diabetes mellitus with hypoglycemia without coma; I12.0 Hypertensive chronic kidney disease with stage 5 chronic kidney disease or end stage renal disease; E11.22 Type 2 diabetes mellitus with diabetic chronic kidney disease; R19.7 Diarrhea, unspecified; Z99.2 Dependence on renal dialysis; Z91.158 Patient's noncompliance with renal dialysis for other reason; Z79.4 Long term (current) use of insulin
CPT/HCPCS: 85025 ×2; 80048 ×3; 36415; 82947 ×9; 87340; 86706; 90935; 99285; J1610; J1644 ×2; J7613; G0378

== ENCOUNTER 2024-07-08 11:08 | Inpatient (IN) | payer OTHER ==
[2024-07-08 11:40] LABS: Absolute Eosinophils 0.1 K/uL (0-0.5); Absolute Monocytes 0.7 K/uL (0.1-1.3); Absolute Neutrophil 3.5 K/uL (1.8-8.0); Basophils % 0.6 % (0-1.3); Eosinophils % 1.3 % (0-4.4); Hematocrit 28.7 % (39.6-49.0); Hemoglobin 9.8 g/dL (13.6-17.9); Lymphocytes % 18.4 % (15.3-44.8); MCH 32.2 pg (27.0-35.0); MCHC 34.1 g/dL (32.0-36.0); MCV 94.4 fL (80-100); MPV 9.4 fL (7.6-11.3); Monocytes % 13.3 % (3.3-12.3); Neutrophils % 66.4 % (41.7-73.7); Nucleated Red Blood Cells % 0.2 % (0-0); Platelets 208 thou/uL (152-406); RBC Red Blood Cell Count 3.04 M/uL (4.33-5.43); Red Cell Distribution Width 16.8 % (12.1-15.2)
--- NOTE | 2024-07-08 12:10 | RAD REPORT ---
EXAM: Chest Single View HISTORY: CHEST PAIN COMPARISON: 12/05/2015 FINDINGS: LUNGS/PLEURA: Widespread interstitial and airspace disease. MEDIASTINUM: The mediastinal silhouette is within normal limits. CARDIAC: Cardiomegaly is present. UPPER ABDOMEN: No significant abnormality. BONES: No acute abnormality. LINES/TUBES/OTHER: N/A IMPRESSION: Widespread airspace disease likely reflecting pulmonary edema. Multifocal pneumonia considered less l ikely but within the differential.
[2024-07-08 12:34] LABS: PT Prothrombin Time 11.9 SECONDS (9.4-12.5); Protime INR 1.13
[2024-07-08 12:49] LABS: Albumin 3.1 g/dL (3.4-5.0); Albumin/Globulin Ratio 0.5 (1.1-1.8); Bilirubin Direct 0.2 mg/dL (0-0.2); Bilirubin Indirect, Calculated 0.5 mg/dL (0.2-0.8); Bilirubin Total 0.7 mg/dL (0.2-1.0); Globulin 5.8 g/dL (2.3-3.5); Magnesium 2.7 mg/dL (1.6-2.4); Protein, Total 8.9 g/dL (6.4-8.2)
[2024-07-08 12:55] LABS: Troponin High Sensitivity 176.4 pg/mL (<58.9)
[2024-07-08 12:58] LABS: Platelet Estimate ADEQ; White Blood Cell Scan OK (OK)
[2024-07-08 12:59] LABS: Blood Morphology Comment NOT SEEN (NOT SEEN)
--- NOTE | 2024-07-08 13:24 | EDPHYS ---
Physician Documentation [facility] Name: Isiah Kidd Age: 49 yrs Sex: Male : 1975 Arrival Date: 07/08/2024 Time: 11:08 Bed 6 Private MD: ED Physician Amber Romero HPI: 07/08 11:29 This 49 yrs old Male presents to ER via Ambulatory with complaints of sp3 Breathing Difficulty, Chest Pain. 11:29 49-year-old male with history of diabetes, hypertension, end-stage renal disease with sp3 Saturday dialysis with last dialysis on Saturday now presents to the ED with chief complaint shortness of breath, cough, chest pain. Positive sick contact reported with his significant other. He denies headache, neck pain, abdominal pain, vomit, diarrhea, rash, syncope, fever or any other signs or symptoms on ROS at this time.. Historical: - Allergies: 11:21 No Known Allergies; iw - PMHx: 11:20 Diabetes - NIDDM; Fisutla- Right Arm; Hypertensive disorder; kidney disease; dialysis; iw - PSHx: 11:20 RIGHT BKA; iw - Immunization history:: Adult Immunizations up to date. - Infectious Disease History:: Denies. - Social history:: Smoking status: Patient denies any tobacco usage or history of. ROS: 11:30 Constitutional: Negative for fever, chills, and weight loss, Eyes: Negative for injury, sp3 pain, redness, and discharge, ENT: Negative for injury, pain, and discharge, Neck: Negative for injury, pain, and swelling, Abdomen/GI: Negative for abdominal pain, nausea, vomiting, diarrhea, and constipation, Back: Negative for injury and pain, MS/Extremity: Negative for injury and deformity, Skin: Negative for injury, rash, and discoloration, Neuro: Negative for headache, weakness, numbness, tingling, and seizure, Psych: Negative for depression, anxiety, suicide ideation, homicidal ideation, and hallucinations, Allergy/Immunology: Negative for hives, rash, and allergies, Endocrine: Negative for neck swelling, polydipsia, polyuria, polyphagia, and marked weight changes, Hematologic/Lymphatic: Negative for swollen nodes, abnormal bleeding, and unusual bruising, 11:30 All other systems are negative, Exam: 11:30 Constitutional: This is a well developed, well nourished patient who is awake, alert, sp3 and in no acute distress. Head/Face: Normocephalic, atraumatic. Eyes: Pupils equal round and reactive to light, extra-ocular motions intact. Lids and lashes normal. Conjunctiva and sclera are non-icteric and not injected. Cornea within normal limits. Periorbital areas with no swelling, redness, or edema. ENT: Nares patent. No nasal discharge, no septal abnormalities noted. External auditory canals are clear. Oropharynx with no redness, swelling, or masses, exudates, or evidence of obstruction, uvula midline. Mucous membranes moist. Neck: Trachea midline, no thyromegaly or masses palpated, and no cervical lymphadenopathy. Supple, full range of motion without nuchal rigidity, or vertebral point tenderness. No Meningismus. Chest/axilla: Normal chest wall appearance and motion. Nontender with no deformity. No lesions are appreciated. Cardiovascular: Regular rate and rhythm with a normal S1 and S2. No gallops, murmurs, or rubs. Normal PMI, no JVD. No pulse deficits. Abdomen/GI: Soft, non-tender, with normal bowel sounds. No distension or tympany. No guarding or rebound. No evidence of tenderness throughout. Back: No spinal tenderness. No costovertebral tenderness. Full range of motion. Skin: Warm, dry with normal turgor. Normal color with no rashes, no lesions, and no evidence of cellulitis. MS/ Extremity: Pulses equal, no cyanosis. Neurovascular intact. Full, normal range of motion. Neuro: Awake and alert, GCS 15, oriented to person, place, time, and situation. Cranial nerves II-XII grossly intact. Motor strength 5/5 in all extremities. Sensory grossly intact. Cerebellar exam normal. Normal gait. Psych: Awake, alert, with orientation to person, place and time. Behavior, mood, and affect are within normal limits. 11:30 Respiratory: Active cough and rhonchi diffusely. Room air pulse oxygenation between 87 and 90%., 13:37 ECG was reviewed by the Attending Physician. EKG demonstrates normal sinus rhythm 71 sp3 bpm with normal intervals except QTc of 493, normal axis, nonspecific diffuse ST/T changes without evidence of acute ischemia. Vital Signs: 11:22 BP 135 / 83; Pulse 71; Resp 16; Temp 98.1; Pulse Ox 99% on R/A; Weight 117.03 kg; iw Height 5 ft. 11 in. ; Pain 6/10; 19:40 BP 157 / 83; Pulse 66; Resp 18; Temp 97.7; Pulse Ox 99% on 2 lpm NC; Pain 0/10; bm8 11:22 Body Mass Index 35.98 (117.03 kg, 180.34 cm) iw 11:22 Pain Scale: Adult iw 19:40 Pain Scale: Adult bm8 Mary Coma Score: 19:40 Eye Response: spontaneous(4). Motor Response: obeys commands(6). Verbal Response: bm8 oriented(5). Total: 15. MDM: 11:14 Medical Screening Exam initiated sp3 11:31 Data reviewed: vital signs, nurses notes, old medical records, lab test result(s), EKG, sp3 radiologic studies. ED course: 49-year-old male with complex medical history including dialysis now presents with chest pain, shortness of breath and cough. Differential diagnosis includes pneumonia, bronchitis, CHF, volume overload, among others. Will obtain chest x-ray, labs, EKG, oxygen and supportive care. Disposition pending workup and patient course. Patient does not have any prolonged immobilization, recent travel, prior history of DVT or PE and I do not believe has a high risk for PE currently.. 13:23 ED course: Patient with elevated troponin at 176 and BNP 94,500 with last dialysis on sp3 Saturday. We will treat as NSTEMI, administer aspirin and admit for inpatient care and cardiology consult.. 13:38 ED course: Patient reevaluated again and clearly states he has no active chest pain. He sp3 is feeling better with oxygen.. 07/08 11:14 Order name: Basic Metabolic Panel; Complete Time: 13:08 sp3 07/08 11:14 Order name: CBC with Diff; Complete Time: 13:08 sp3 07/08 11:14 Order name: LFT's; Complete Time: 13:08 sp3 07/08 11:14 Order name: Magnesium; Complete Time: 13: sp3 07/08 11:14 Order name: NT PRO-BNP; Complete Time: 13: 3 07/08 11:14 Order name: PT-INR; Complete Time: 13:08 sp3 07/08 11:14 Order name: Troponin HS; Complete Time: 13:08 sp3 07/08 11:46 Order name: CBC Smear Scan; Complete Time: 13:08 EDMS 07/08 16:26 Order name: Magnesium EDMS 07/08 16:26 Order name: Phosphorus EDMS 07/08 16:26 Order name: T4 Free EDMS 07/08 16:26 Order name: Thyroid Stimulating Hormone EDMS 07/08 16:26 Order name: Urinalysis w/ reflexes EDMS 07/08 16:26 Order name: Basic Metabolic Panel EDMS 07/08 16:26 Order name: Basic Metabolic Panel EDMS 07/08 16:26 Order name: CBC with Automated Diff EDMS 07/08 16:26 Order name: CBC with Automated Diff ED[facility] 07/08 16:26 Order name: Lipid Profile EDMS 07/08 16:26 Order name: Lipid Profile [facility] 07/08 16:26 Order name: Troponin High Sensitivity [facility] 07/08 16:26 Order name: Troponin High Sensitivity [facility] 07/08 16:26 Order name: Troponin High Sensitivity [facility] 07/08 11:14 Order name: XRAY Chest (1 view); Complete Time: 13:08 3 07/08 16:33 Order name: Echo with Doppler [facility] 07/08 16:26 Order name: CONS Physician Consult [facility] 07/08 11:14 Order name: Cardiac monitoring; Complete Time: 11:45 sp3 07/08 11:14 Order name: EKG - Nurse/Tech; Complete Time: 11:45 3 07/08 11:14 Order name: IV Saline Lock; Complete Time: 12:14 sp3 07/08 11:14 Order name: Labs collected and sent; Complete Time: 11:45 sp3 07/08 11:14 Order name: O2 Per Protocol; Complete Time: 11:45 sp3 07/08 11:14 Order name: O2 Sat Monitoring; Complete Time: 11:45 sp3 07/08 11:46 Order name: Labs - recollect needed: recollect green blue and lavender top; Complete bd Time: 12:14 Administered Medications: 14:18 Drug: Aspirin PO 325 mg PO once Route: PO; db 19:41 Follow up: Response: No adverse reaction bm8 Disposition Summary: 07/08/24 13:24 Hospitalization Ordered Notes: Hospitalization Status: Inpatient Admission sp3 Provider: Ashutosh Lawson sp3 Condition: Stable sp3 Problem: an acute exacerbation sp3 Symptoms: have worsened sp3 Bed/Room Type: Standard sp3 Location: Telemetry/MedSurg (Inpatient)(07/08/24 19:21) rv1 Room Assignment: 210(07/08/24 19:21) rv1 Diagnosis - NSTEMI, volume overload, chest pain sp3 Forms: - Medication Reconciliation Form sp3 - SBAR form sp3 - Leadership Thank You Letter sp3 Signatures: Dispatcher [employer] EDMS Nel Sexton Irene, RN RN iw Amber Romero MD MD sp3 Sena Caraballo RN RN db Taylor Vaughn rv1 Naun Guerrero RN bm8 Corrections: (The following items were deleted from the chart) 11:14 11:14 BASIC METABOLIC PANEL+C.LAB.BRZ ordered. EDMS EDMS 11:14 11:14 CBC+H.LAB.BRZ ordered. EDMS EDMS 11:14 11:14 HEPATIC FUNCTION+C.LAB.BRZ ordered. EDMS EDMS 11:14 11:14 MAGNESIUM+C.LAB.BRZ ordered. EDMS EDMS 11:14 11:14 PROBNP+C.LAB.BRZ ordered. EDMS EDMS 11:14 11:14 PROTIME (+INR)+COAG.LAB.BRZ ordered. EDMS EDMS 11:14 11:14 Troponin High Sensitivity+C.LAB.BRZ ordered. EDMS EDMS 11:15 11:15 Chest Single View+RAD.RAD.BRZ ordered. EDMS EDMS 11:21 11:20 PMHx: Dialysis (T; iw iw 11:21 11:20 PMHx: Dialysis (T; iw 11:21 11:20 PMHx: Dialysis (T; iw 11:21 11:20 PMHx: Dialysis (T; iw 17:59 13:24 Telemetry/MedSurg (Inpatient) sp3 bd 17:59 13:24 sp3 bd 19:21 17:59 [facility] ER HOLD bd rv1 19:21 17:59 ERHOLD- bd rv1
--- NOTE | 2024-07-08 13:24 | ER ---
Nurse's Notes [facility] Name: Isiah Kidd Age: 49 yrs Sex: Male : 1975 Arrival Date: 07/08/2024 Time: 11:08 Bed 6 Private MD: Diagnosis: NSTEMI, volume overload, chest pain Presentation: 07/08 11:19 Chief complaint: Patient states: chest pain and SOB since Saturday , worse when lying iw back. Coronavirus screen: At this time, the client does not indicate any symptoms associated with coronavirus-19. Ebola Screen: No symptoms or risks identified at this time. Initial Sepsis Screen: Does the patient meet any 2 criteria? No. Patient's initial sepsis screen is negative. Does the patient have a suspected source of infection? No. Patient's initial sepsis screen is negative. Risk Assessment: Do you want to hurt yourself or someone else? Patient reports no desire to harm self or others. Onset of symptoms was July 06, 2024. 11:19 Method Of Arrival: Ambulatory iw 11:19 Acuity: MONIKA 3 iw Triage Assessment: 19:43 General: Appears in no apparent distress. uncomfortable, Behavior is calm, cooperative, bm8 appropriate for age. Respiratory: Onset: The symptoms/episode began/occurred since saturday, the patient has moderate shortness of breath. Historical: - Allergies: 11:21 No Known Allergies; iw - PMHx: 11:20 Diabetes - NIDDM; Fisutla- Right Arm; Hypertensive disorder; kidney disease; dialysis; iw - PSHx: 11:20 RIGHT BKA; iw - Immunization history:: Adult Immunizations up to date. - Infectious Disease History:: Denies. - Social history:: Smoking status: Patient denies any tobacco usage or history of. Screenin:30 [facility] ED Fall Risk Assessment (Adult) History of falling in the last 3 months, db including since admission No falls in past 3 months (0 pts) Confusion or Disorientation No (0 pts) Intoxicated or Sedated No (0 pts) Impaired Gait Yes (1 pt) Mobility Assist Device Used Yes (1 pt) Altered Elimination No (0 pt) Score/Fall Risk Level 0 - 2 = Low Risk Oriented to surroundings, Maintained a safe environment. Abuse screen: Denies threats or abuse. Denies injuries from another. Nutritional screening: No deficits noted. Tuberculosis screening: No symptoms or risk factors identified. Assessment: 11:30 Reassessment: Patient appears in no apparent distress at this time. Patient and/or db family updated on plan of care and expected duration. Pain level reassessed. Patient is alert, oriented x 3, equal unlabored respirations, skin warm/dry/pink. General: Appears in no apparent distress. comfortable, Behavior is calm, cooperative. Pain: Complains of pain in chest. Neuro: Level of Consciousness is awake, alert, obeys commands, Oriented to person, place, time, situation. Cardiovascular: Rhythm is sinus rhythm. Respiratory: Reports shortness of breath Airway is patent Respiratory effort is even, unlabored, Respiratory pattern is regular, symmetrical. 13:34 Reassessment: Patient appears in no apparent distress at this time. Patient and/or db family updated on plan of care and expected duration. Pain level reassessed. Patient is alert, oriented x 3, equal unlabored respirations, skin warm/dry/pink. General: Appears in no apparent distress. comfortable. Respiratory: 19:40 Reassessment: Patient appears in no apparent distress at this time. Patient and/or bm8 family updated on plan of care and expected duration. Pain level reassessed. Patient is alert, oriented x 3, equal unlabored respirations, skin warm/dry/pink. Patient denies pain at this time. Patient states feeling better. Patient states symptoms have improved. Vital Signs: 11:22 BP 135 / 83; Pulse 71; Resp 16; Temp 98.1; Pulse Ox 99% on R/A; Weight 117.03 kg; iw Height 5 ft. 11 in. ; Pain 6/10; 19:40 BP 157 / 83; Pulse 66; Resp 18; Temp 97.7; Pulse Ox 99% on 2 lpm NC; Pain 0/10; bm8 11:22 Body Mass Index 35.98 (117.03 kg, 180.34 cm) iw 11:22 Pain Scale: Adult iw 19:40 Pain Scale: Adult bm8 Gore Coma Score: 19:40 Eye Response: spontaneous(4). Motor Response: obeys commands(6). Verbal Response: bm8 oriented(5). Total: 15. ED Course: 11:11 Patient arrived in ED. al6 11:14 Amber Romero MD is Attending Physician. sp3 11:17 Sena Caraballo, RN is Primary Nurse. db 11:20 Triage completed. iw 11:21 Arm band placed on. iw 11:32 Initial lab(s) drawn, by me, sent to lab. Missed attempt(s): 20 gauge in left db antecubital area. Bleeding controlled, band aid applied, catheter tip intact. 11:47 Patient has correct armband on for positive identification. Bed in low position. Call db light in reach. Side rails up X 1. Client placed on continuous cardiac and pulse oximetry monitoring. NIBP monitoring applied. bus driver/monitor on. Pulse ox on. NIBP on. Pillow given. 12:00 Missed attempt(s): 22 gauge in left antecubital area. Bleeding controlled, band aid db applied, catheter tip intact. 12:02 XRAY Chest (1 view) In Process Unspecified. EDMS 12:14 Lab(s) recollected, by me, sent to lab. Inserted saline lock: 20 gauge in left ty antecubital area, using aseptic technique. Blood collected. Flushed with 10 mL NS. 13:24 Ashutosh Lawson is Hospitalizing Provider. sp3 19:39 Naun Guerrero, RN is Primary Nurse. bm8 19:40 Provided Education on: need for admission. bm8 19:40 No provider procedures requiring assistance completed. Patient admitted, IV remains in bm8 place. Administered Medications: 14:18 Drug: Aspirin PO 325 mg PO once Route: PO; db 19:41 Follow up: Response: No adverse reaction bm8 Medication: 11:30 VIS not applicable for this client. db Outcome: 13:24 Decision to Hospitalize by Provider. sp3 19:40 Admitted to Med/surg accompanied by tech, via wheelchair, room 210, bm8 19:40 Condition: stable 19:40 Instructed on follow up and referral plans. the need for admit, Demonstrated understanding of instructions, follow-up care, medications, 20:38 Patient left the ED. bm8 Signatures: Dispatcher [employer] EDMS Lashay Simon, Amber Hassan RN, MD MD sp3 Sena Caraballo RN RN db Otto Sparks ty Naun Guerrero RN RN bm8 Mamie [id number] Corrections: (The following items were deleted from the chart) 11:21 11:20 PMHx: Dialysis (T; iw iw PMHx: Dialysis (T; iw iw PMHx: Dialysis (T; iw iw PMHx: Dialysis (T; iw iw
[2024-07-08] MEDS ORDERED: ASPIRIN 325 MG TAB ONE (14:14)
[2024-07-08] MEDS ORDERED: ONDANSETRON 4 MG/2 ML VIAL IV PRN (16:18)
[2024-07-08] MEDS ORDERED: ACETAMINOPHEN 325 MG TABLET PO PRN (16:25)
[2024-07-08] MEDS ORDERED: HYDROCODONE/APAP 10/325 TAB PO PRN (16:25)
--- NOTE | 2024-07-08 16:32 | P.HP ---
Certification for Inpatient Patient admitted to: Inpatient With expected LOS: >2 Midnights Patient will require the following post-hospital care: None Practitioner: I am a practitioner with admitting privileges, knowledge of patient current condition, hospital course, and medical plan of care. Services: Services provided to patient in accordance with Admission requirements found in Title 42 Section 412.3 of the Code of Federal Regulations Patient History Date of Service: 07/08/24 Reason for admission: Shortness of breath and chest pain History of Present Illness: Patient is a 49-year-old male with past medical history significant for DM2, ESRD, right BKA, hypertension who presents with complaint of shortness of breath and chest pain onset this morning. Patient reported the chest pain is located in the substernal chest area, rated pain as 6/10 in severity and described pain as throbbing\aching quality. Patient indicated that chest pain radiates to his neck. Patient reported associated signs and symptoms of orthopnea and cough. Patient denies any other signs and symptoms. Symptoms are aggravated or relieved by nothing. Patient decided to present to the hospital due to worsening symptoms. Allergies No Known Drug Allergies Allergy (Mild, Verified 12/26/15 10:45) Unknown No Known Allergies Allergy (Uncoded 09/22/17 01:30) Unknown Home medications list reviewed: Yes Home Medications: Insulin Glargine,Hum.rec.anlog [Lantus] 20 unit SQ BEDTIME 04/15/24 Insulin Lispro [Humalog] 6 unit SQ TID 04/15/24 Amlodipine [Norvasc*] 5 mg PO BEDTIME #30 tab 04/16/24 Losartan Potassium [Cozaar*] 50 mg PO BID #60 tab 04/16/24 - Past Medical/Surgical History Diabetic: Yes -: DM-Type 2 -: Cocaine abuse -: Hypertension -: ESRD on HD followed by Dr. 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 - Family History Mother -: Hypertension, Diabetes, Cancer - Social History Smoking Status: Never smoker Alcohol use: No CD- Drugs: No Caffeine use: No Place of Residence: Home Review of Systems General: Unremarkable Eyes: Unremarkable ENT: Unremarkable Respiratory: Cough, Shortness of Breath Cardiovascular: Orthopnea Gastrointestinal: Unremarkable Genitourinary: Unremarkable Musculoskeletal: Unremarkable Integumentary: Unremarkable Neurological: Unremarkable Lymphatics: Unremarkable Physical Examination - Physical Exam General: Alert, In no apparent distress, Oriented x3, Cooperative HEENT: Atraumatic, PERRLA, Mucous membr. moist/pink, EOMI, Sclerae nonicteric Neck: Supple, 2+ carotid pulse no bruit, No LAD, Without JVD or thyroid abnormality Respiratory: Clear to auscultation bilaterally, Normal air movement Cardiovascular: No edema, Regular rate/rhythm, Normal S1 S2 Capillary refill: <2 Seconds Gastrointestinal: Normal bowel sounds, Soft and benign, No tenderness Musculoskeletal: No clubbing, No swelling, No tenderness Integumentary: No rashes Neurological: Normal speech, Normal tone, Normal affect Lymphatics: No axilla or inguinal lymphadenopathy Urinary: Dialysis catheter - Studies Laboratory Data (last 24 hrs) 07/08/24 07/08/24 07/08/24 12:08 12:08 11:32 WBC 5.30 Hgb 9.8 L Hct 28.7 L Plt Count 208 PT 11.9 INR 1.13 Sodium 129 L Potassium 4.0 BUN 46 H Creatinine 7.35 H Glucose 185 H Magnesium 2.7 H Total Bilirubin 0.7 AST 103 H ALT 126 H Alkaline Phosphatase 143 H Assessment and Plan - Plan Chest pain. --To rule out ACS. --Serial troponins elevated but trending down. --Cardiology consulted. Recommendations appreciated. --Echocardiogram to assess cardiac structures and functions. ESRD Volume overload --Nephrology consulted. Recommendations appreciated. --Will hold off on ARB and avoid nephrotoxins. Elevated BNP. --Echocardiogram pending to assess LV\valvular functions wall motion. DM2 --BS monitoring with sliding scale insulin Anemia of CKD --H&H stable. --Transfuse if hemoglobin less than 7.0. Elevated LFTs. --Unknown etiology. --Will continue to monitor LFTs. --Continue supportive care. Right BKA --Continue supportive care. Hypertension. --Poor controlled. --Hydralazine as needed for SBP greater than 160 mmHg. --Continue home medications. DVT prophylaxis with heparin subQ. Discharge Plan: Home Plan to discharge in: Greater than 2 days - Advance Directives Does patient have a Living Will: No Does patient have a Durable POA for Healthcare: No - Code Status/Comfort Care Code Status Assessed: Yes Code Status: Full Code Physician Review: Patient Assessed, Agree with Above Assessment and Plan Critical Care: No
[2024-07-08 18:47] LABS: Magnesium 2.6 mg/dL (1.6-2.4); Phosphorus 4.7 mg/dL (2.5-4.9); Thyroid Stimulating Hormone 1.8 uIU/mL (0.358-3.740)
[2024-07-08] MEDS ORDERED: POTASSIUM 25 MEQ EFFERV TAB ONE (19:56)
[2024-07-08] MEDS: HEPARIN 5000 UNIT/ML 1 ML VIAL SQ SCH (22:32)
[2024-07-09 05:23] LABS: Absolute Eosinophils 0.2 K/uL (0-0.5); Absolute Lymphocytes (CBC) 1.2 K/uL (0.7-4.9); Absolute Monocytes 0.6 K/uL (0.1-1.3); Absolute Neutrophil 3.5 K/uL (1.8-8.0); Basophils % 0.2 % (0-1.3); Eosinophils % 2.9 % (0-4.4); Hematocrit 27.9 % (39.6-49.0); Hemoglobin 9.5 g/dL (13.6-17.9); Lymphocytes % 22.4 % (15.3-44.8); MCH 32.6 pg (27.0-35.0); MCHC 34.2 g/dL (32.0-36.0); MCV 95.1 fL (80-100); MPV 7.9 fL (7.6-11.3); Monocytes % 11.5 % (3.3-12.3); Nucleated Red Blood Cells % 0.1 % (0-0); Platelets 202 thou/uL (152-406); RBC Red Blood Cell Count 2.93 M/uL (4.33-5.43); Red Cell Distribution Width 16.5 % (12.1-15.2)
[2024-07-09 05:46] LABS: Anion Gap 11.1 mEq/L (5.0-15.0); Potassium 4.1 mEq/L (3.5-5.1)
[2024-07-09] MEDS: LOSARTAN POTASSIUM 50 MG TABLET PO SCH (08:50)
[2024-07-09] MEDS: INSULIN LISPRO 100 UNIT/1 ML SQ SCH (08:50)
[2024-07-09] MEDS ORDERED: AMLODIPINE 5 MG TAB PO SCH (09:00)
[2024-07-09] MEDS ORDERED: MANNITOL 25% 12.5 GM/50 ML VIAL IV PRN (09:53)
[2024-07-09] MEDS ORDERED: NA CHLORIDE 0.9% 1,000 ML IV PRN (09:53)
--- NOTE | 2024-07-09 09:55 | P.CNS ---
Date of Consult: 07/09/24 Reason for Consult: ESRD Requesting Physician: ziyad haskins Chief Complaint: Shortness of breath and chest pain History of Present Illness: Patient is a 49-year-old male with past medical history significant for DM2, ESRD, right BKA, hypertension who presents with complaint of shortness of breath and chest pain onset this morning. Patient reported the chest pain is located in the substernal chest area, rated pain as 6/10 in severity and described pain as throbbing\aching quality. Patient indicated that chest pain radiates to his neck. Patient reported associated signs and symptoms of orthopnea and cough. Patient denies any other signs and symptoms. Symptoms are aggravated or relieved by nothing. Patient decided to present to the hospital due to worsening symptoms. 11:29 This 49 yrs old Male presents to ER via Ambulatory with complaints of sp3 Breathing Difficulty, Chest Pain. 11:29 49-year-old male with history of diabetes, hypertension, end-stage renal disease with sp3 Saturday dialysis with last dialysis on Saturday now presents to the ED with chief complaint shortness of breath, cough, chest pain. Positive sick contact reported with his significant other. He denies headache, neck pain, abdominal pain, vomit, diarrhea, rash, syncope, fever or any other signs or symptoms on ROS at this time.. Allergies No Known Drug Allergies Allergy (Mild, Verified 12/26/15 10:45) Unknown No Known Allergies Allergy (Uncoded 09/22/17 01:30) Unknown Home medications list reviewed: Yes Home Medications: Insulin Glargine,Hum.rec.anlog [Lantus] 15 unit SQ DAILY 04/15/24 Insulin Lispro [Humalog] 4 unit SQ TIDWM 04/15/24 Losartan Potassium [Cozaar*] 50 mg PO BID #60 tab 04/16/24 Amlodipine [Norvasc*] 5 mg PO BID 07/09/24 - Past Medical/Surgical History Diabetic: Yes -: DM-Type 2 -: Cocaine abuse -: Hypertension -: ESRD on HD followed by Dr. 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 - Family History Mother Medical History: Hypertension, Diabetes, Cancer - Social History Smoking Status: Never smoker Alcohol use: No CD- Drugs: No Caffeine use: No Place of Residence: Home Review of Systems 10-point ROS is otherwise unremarkable Respiratory: SOB with Excertion Cardiovascular: Chest Pain, Edema Physical Examination Temp Pulse Resp BP Pulse Ox 97.9 F 67 20 157/82 H 95 07/09/24 08:00 07/09/24 08:00 07/09/24 08:00 07/09/24 08:00 07/09/24 08:00 General: In no apparent distress, Oriented x3, Cooperative HEENT: Atraumatic Neck: Supple Respiratory: Diminished Cardiovascular: Regular rate/rhythm, Edema Gastrointestinal: Soft and benign, Non-distended Musculoskeletal: No clubbing, No contractures Integumentary: No rashes, No cyanosis Neurological: Normal speech Laboratory Data (last 24 hrs) 07/08/24 07/08/24 07/08/24 12:08 12:08 11:32 WBC 5.30 Hgb 9.8 L Hct 28.7 L Plt Count 208 PT 11.9 INR 1.13 Sodium 129 L Potassium 4.0 BUN 46 H Creatinine 7.35 H Glucose 185 H Magnesium 2.7 H Total Bilirubin 0.7 AST 103 H ALT 126 H Alkaline Phosphatase 143 H Imagings Data: Reason for Exam: CHEST PAIN Report Status: Signed EXAM: Chest Single View HISTORY: CHEST PAIN COMPARISON: 12/05/2015 FINDINGS: LUNGS/PLEURA: Widespread interstitial and airspace disease. MEDIASTINUM: The mediastinal silhouette is within normal limits. CARDIAC: Cardiomegaly is present. UPPER ABDOMEN: No significant abnormality. BONES: No acute abnormality. LINES/TUBES/OTHER: N/A IMPRESSION: Widespread airspace disease likely reflecting pulmonary edema. Multifocal pneumonia considered less likely but within the differential. Conclusions/Impression: ESRD on HD TTS -Acute HD ordered Hyponatremia -Acute HD HTN with CKD/ CHF -Continue Losartan -Continue Amlodipine Diastolic CHF, A/C -Low sodium diet -UF with HD DM II with CKD -Continue Lantus -TRUPTI Anemia in CKD -Retacrit qHD CKD MBD Secondary HyperParathyroidism -Start Ergo -Start [facility] Hospitalist and ER notes reviewed Case reviewed with Dr. Haskins Thank you kindly for the consultation
[2024-07-09] MEDS ORDERED: ALBUMIN HUMAN 25% 50 ML IV SCH (10:00)
--- NOTE | 2024-07-09 10:04 | P.CNS ---
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 Allergies No Known Drug Allergies Allergy (Mild, Verified 12/26/15 10:45) Unknown No Known Allergies Allergy (Uncoded 09/22/17 01:30) Unknown Home medications list reviewed: Yes Home Medications: Insulin Glargine,Hum.rec.anlog [Lantus] 15 unit SQ DAILY 04/15/24 Insulin Lispro [Humalog] 4 unit SQ TIDWM 04/15/24 Losartan Potassium [Cozaar*] 50 mg PO BID #60 tab 04/16/24 Amlodipine [Norvasc*] 5 mg PO BID 07/09/24 - Past Medical/Surgical History Diabetic: Yes -: DM-Type 2 -: Cocaine abuse -: Hypertension -: ESRD on HD followed by Dr. 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 - Family History Mother Medical History: Hypertension, Diabetes, Cancer - Social History Smoking Status: Never smoker Alcohol use: No CD- Drugs: No Caffeine use: No Place of Residence: Home Review of Systems 10-point ROS is otherwise unremarkable Physical Examination Temp Pulse Resp BP Pulse Ox 97.9 F 67 20 157/82 H 95 07/09/24 08:00 07/09/24 08:00 07/09/24 08:00 07/09/24 08:00 07/09/24 08:00 General: Alert, In no apparent distress HEENT: Atraumatic, PERRLA, Mucous membr. moist/pink, EOMI, Sclerae nonicteric Neck: Supple, 2+ carotid pulse no bruit, No LAD, Without JVD or thyroid abnormality Respiratory: Clear to auscultation bilaterally, Normal air movement Cardiovascular: Regular rate/rhythm, Normal S1 S2 Gastrointestinal: Normal bowel sounds, No tenderness Musculoskeletal: No tenderness Integumentary: No rashes Neurological: Normal gait, Normal speech, Normal tone, Normal affect Lymphatics: No axilla or inguinal lymphadenopathy Laboratory Data (last 24 hrs) 07/08/24 07/08/24 07/08/24 12:08 12:08 11:32 WBC 5.30 Hgb 9.8 L Hct 28.7 L Plt Count 208 PT 11.9 INR 1.13 Sodium 129 L Potassium 4.0 BUN 46 H Creatinine 7.35 H Glucose 185 H Magnesium 2.7 H Total Bilirubin 0.7 AST 103 H ALT 126 H Alkaline Phosphatase 143 H - Problems (1) Chest pain Current Visit: Yes Status: Acute Plan: tropinin mild elevated but trending down recommend nuclear stress test in am (Lexiscan) get Echo ASA 81 mg daily Lipitor 40 mg daily
[2024-07-09] MEDS: EPOETIN ALFA 10,000 UNIT/ML VIAL IV SCH (11:58)
[2024-07-09] MEDS: CALCIUM ACETATE 667 MG TAB PO SCH (12:00)
[2024-07-09] MEDS: LACTOBACILLUS/ACIDOPHILUS TAB PO SCH (12:00)
[2024-07-09] MEDS: DRISDOL (VITAMIN D=ERGOCALCIFEROL) 50000 UNIT CAP PO SCH (12:00)
--- NOTE | 2024-07-09 15:55 | P.PN ---
Subjective Date of Service: 07/09/24 Chief Complaint: Shortness of breath and chest pain Patient denies any chest pain today. He also denies any shortness of breath. He is tolerating room air. Physical Examination - Vital Signs Temperature: 97.9 F Blood Pressure: 157/82 Pulse: 67 Respirations: 20 Pulse Ox (%): 95 Assessment And Plan - Plan Physical examination General: Alert and oriented x3, NAD, HEENT: Conjunctiva not pale, anicteric sclera Neck: Supple, no elevated JVD Heart: Heart sounds 1 and 2 normal, regular rhythm, normal rate, no pedal edema Lungs: Clear to auscultation bilaterally, adequate breath sounds bilaterally, no rhonchi or crackles. Abdomen: Soft, nondistended, nontender, normal bowel sounds. Extremities: No tenderness, no deformity Skin: Normal skin turgor, no rash, no nodules or ulcers. Neuro: No focal motor deficit. Normal speech. Psychiatry: Normal mood, no agitation. Assessment and plan Chest pain. Troponin trended negative Cardiology Dr. Lopez's input appreciated Dr. Lopez recommended nuclear stress test Echocardiogram is pending. ESRD Volume overload Patient was due for hemodialysis today. Nephrology consulted. DM2 Insulin sliding scale for glucose management. Anemia of CKD H&H stable. Transfuse if hemoglobin less than 7.0. Elevated LFTs Unknown etiology. Obtain liver ultrasound. Monitor LFT. Hypertension Continue home antihypertensives.. Hydralazine as needed for SBP greater than 160 mmHg. DVT prophylaxis: heparin subQ.
[2024-07-09] MEDS: HYDRALAZINE HCL 20 MG/ML VIAL IV PRN (17:52)
[2024-07-09 19:53] VITALS: BMI 31.2
[2024-07-09] MEDS: INSULIN GLARGINE 100 UNIT/ML SQ SCH (21:00)
[2024-07-09] MEDS: AMLODIPINE 5 MG TAB PO SCH (22:14)
[2024-07-10] MEDS ORDERED: REGADENOSON 0.4 MG/5 ML SYR IV ONE ×2 (08:01→13:47)
[2024-07-10] MEDS: MULTIVITAMINS,THERAPEUT 1 TAB PO SCH (09:21)
--- NOTE | 2024-07-10 09:21 | RAD REPORT ---
EXAM: Nuclear medicine cardiac perfusion examination with ejection fraction HISTORY: Chest pain Chest pain, troponin elevation TECHNIQUE: Rest images: 10.6 mCi technetium 99m sestamibi Stress images: 30.9 mCi of technetium 99m sestamibi COMPARISON: None. FINDINGS: Tomographic images: Small focus of stress-induced ischemia noted involving the LV apex. Fixed diminis hed radiopharmaceutical accumulation along the inferior and posterior likely related to previous infarct. Ejection fraction of 38%. EDV: 215 mL ESV: 134 mL LHR: 0.46 TID: 0.98 IMPRESSION: Small focus of stress-induced ischemia involving the LV apex.
--- NOTE | 2024-07-10 11:49 | P.PN ---
Nephrology note (S) Pt seen resting comfortably, no resp distress, not needing O2, dialyzed yesterday, denies CP, s/p stress test (O) Vitals reviewed in the EMR General: Alert, In no apparent distress, Cooperative HEENT: Atraumatic, Normocephalic, not on O2 Neck: Supple Respiratory: Normal air movement, Other (no wheezing) Cardiovascular: No edema, Regular rate/rhythm mostly Gastrointestinal: Soft, obese, Non-distended, No tenderness Musculoskeletal: No contractures, Other (Rt BKA), some chronic peripheral edema, UE AV access Integumentary: No rashes Neurological: Normal speech, Normal tone, Normal affect Laboratory Data (last 24 hrs) Reviewed in the EMR Conclusions/Impression: A/P) 1. ESRD 2nd to DM/HTN, hx of some missed/rescheduled/shortened tx in prior mo. S/p HD yesterday, will plan for additional treatment, SEQ/UF alone. 2. Shortness of breath -2nd to fluid overload, cardiogenic pulm edema -will target additional UF today and try to re-establish EDW 3. NSTEMI. LVEF dysfunction on stress test, possiblle focus involving LV apex, will await Cardiology reccs 4. Chronic HTN with heart and kidney disease -labile BP, f/u post HD BP, optimize 5. Type II with unspecified complications -defer management to IM, optimize
[2024-07-10] MEDS ORDERED: HEPA 1000U/500MLS 2,000 UNIT/1,000 ML BAG IV ONE (13:11)
[2024-07-10] MEDS ORDERED: NITROGLYCERIN/D5W 50 MG/250 ML BTL IV ONE (13:11)
[2024-07-10] MEDS ORDERED: CLOPIDOGREL 75 MG TABLET ONE (13:12)
[2024-07-10] MEDS ORDERED: HEPARIN 10,000 UNIT/10 ML VIAL IV ONE ×2 (13:12→13:47)
[2024-07-10] MEDS ORDERED: LIDOCAINE 1% 20 ML MDV ONE (13:12)
[2024-07-10] MEDS ORDERED: HEPARIN 5000 UNIT/ML 1 ML VIAL ONE (13:12)
[2024-07-10] MEDS ORDERED: ATROPINE SULF 1 MG/10 ML SYR IV ONE (13:12)
[2024-07-10] MEDS ORDERED: MIDAZOLAM HCL 2 MG/2 ML INJ ONE (13:12)
[2024-07-10] MEDS ORDERED: TICAGRELOR 90 MG TABLET PO ONE (13:13)
[2024-07-10] MEDS ORDERED: ASPIRIN 325 MG TAB ONE (13:13)
[2024-07-10] MEDS ORDERED: FENTANYL CITR 100 MCG/2 ML ONE (13:13)
[2024-07-10] MEDS ORDERED: VERAPAMIL HCL 10 MG/4 ML VIAL IV ONE (13:13)
[2024-07-10] MEDS ORDERED: NA CHLORIDE 0.9% 500 ML ONE (13:22)
--- NOTE | 2024-07-10 13:32 | ECHO ---
HEIGHT: 5 ft 11 in WEIGHT: 258 lb 0 oz DATE OF STUDY: 07/10/[address]: Placido Beebe 2-DIMENSIONAL: YES M.MODE: YES DOPPLER: YES COLOR FLOW: YES TDS: PORTABLE: YES DEFINITY: BUBBLE STUDY: DIAGNOSIS: CHEST PAIN CARDIAC HISTORY: CATHERIZATION: SURGERY: PROSTHETIC VALVE: PACEMAKER: MEASUREMENTS (cm) DIASTOLIC (NORMALS) SYSTOLIC (NORMALS) IVSd 1.2 (0.6-1.2) LA Diam 4.1 (1.9-4.0) LVEF 50-55% LVIDd 5.1 (3.5-5.7) LVIDs 3.8 (2.0-3.5) %FS 26% LVPWd 1.3 (0.6-1.2) Ao Diam 3.4 (2.0-3.7) 2 DIMENSIONAL ASSESSMENT: RIGHT ATRIUM: NORMAL LEFT ATRIUM: ENLARGED RIGHT VENTRICLE: NORMAL LEFT VENTRICLE: LEFT VENTRICULAR HYPERTROPHY TRICUSPID VALVE: MILD TRICUSPID REGURGITATION MITRAL VALVE: MILD MITRAL REGURGITATION PULMONIC VALVE: NORMAL AORTIC VALVE: NORMAL PERICARDIAL EFFUSION: NONE AORTIC ROOT: NORMAL LEFT VENTRICULAR WALL MOTION: NORMAL DOPPLER/COLOR FLOW: SEE BELOW COMMENTS: 1. NORMAL LEFT VENTRICULAR EJECTION FRACTION 50-55% 2. LEFT ATRIAL ENLARGEMENT 3. DIASTOLIC DYSFUNCTION 4. MILD TRICUSPID REGURGITATION 5. MILD CONCENTRIC LEFT VENTRICULAR HYPERTOPHY TECHNOLOGIST: WENDY MACKAY
--- NOTE | 2024-07-10 13:36 | TREADPHA ---
DX: CHEST PAIN, ELEVATED TROPONIN Date of Study: 07/10/2024 Ht: 5' 11 " Wt: 258 lb 0 oz Consulting Physician: BOONE MEDICATIONS: TYLENOL, NORCO, PHOSLO, RETACRIT, DRISOL, HEPARIN, APRESOLINE, SEMGLEE, LACTINEX, COZAAR, MANNITOL, ZOFRAN, NEPHRO-LAINA HISTORY: HYPERTENSION, DIABETES MELLITUS PHYSICIAL EXAMINATION: RESTING B.P.: 161/84 RESTING H.R.: 71 RESTING EKG: NORMAL SINUS RHYTHM WITH LEFT VENTRICULAR HYPERTROPHY PROTOCOL: PHARMACOLOGIC EXERCISE TIME: 3:30 B.P. AT [place] STRESS: 168/77 IMPRESSION: LEXISCAN STRESS PERFORMED ORDERED. CARDIOLITE INJECTED PER PROTOCOL (SEE NUCLEAR MEDICINE REPORT). NO SUPRAVENTRICULAR TACHYCARDIA, NO VENTRICULAR TACHYCARDIA, NO ARRHYTHMIA. PATIENT COMPLAINTS OF CHEST PRESSURE DURING PROCEDURE, SUBSIDED AFTER PROCEDURE. NO ELECTROCARDIOGRAM CHANGES OF ISCHEMIA WITH LEXISCAN.
--- NOTE | 2024-07-10 15:42 | P.PN ---
Date of Service: 07/10/24 Subjective Seen after the stress test, eating breakfast Heart cath performed with no intervention Will need dialysis in the AM ROS 10 point ROS as noted above, otherwise negative Physical examination General: AAo x3, NAD, HEENT: MMM, EOMI, PERRLA Heart: RRR, S1 S2 present, no pedal edema Lungs: Clear BBS, on RA Abdomen: Soft on palpation, ND/NT, normal bowel sounds. Extremities: No tenderness, no deformity Skin: no rash Neuro: No focal motor deficit. Normal speech. Psychiatry: Normal mood, no agitation. Vitals Reviewed Problem list Chest pain r/o ESRD DM2 Anemia of CKD Elevated LFTs Hypertension Assessment and Plan Chest pain R/O Troponin trended negative Cardiology Dr. Lopez's input appreciated nuclear stress test reports "Small focus of stress-induced ischemia involving the LV apex." Echocardiogram reports "EF 50-55%, mild tricuspid regurg, mild concentril left ventricular hypertrophy, left atrial enlargement." ESRD Volume overload hemodialysis 07/09/24 Nephrology following DM2 Insulin sliding scale for glucose management Anemia of CKD H&H stable. Transfuse if hemoglobin less than 7.0 Elevated LFTs Unknown etiology Obtain liver ultrasound Monitor LFT Hypertension Continue home antihypertensives.. Hydralazine as needed for SBP greater than 160 mmHg Interval hospital course 07/10/24 -stress test today, patient ate breakfast immediately after the stress test. - [facility] with no intervention -will dialyze in the AM, likely discharge tomorrow DVT prophylaxis: heparin subQ Full code LOS observation
[2024-07-10 15:43] VITALS: O2SAT 93
--- NOTE | 2024-07-10 17:50 | P.DS ---
Admission Date: 07/08/24 Discharge Date: 07/11/24 Disposition: ROUTINE DISCHARGE Discharge Condition: GOOD Reason for Admission: Shortness of breath and chest pain Brief History of Present Illness: Diagnosis Chest pain r/o ESRD DM2 Anemia of CKD Elevated LFTs Hypertension HPI 07/08/24 Patient is a 49-year-old male with past medical history significant for DM2, ESRD, right BKA, hypertension who presents with complaint of shortness of breath and chest pain onset this morning. Patient reported the chest pain is located in the substernal chest area, rated pain as 6/10 in severity and described pain as throbbing\\aching quality. Patient indicated that chest pain radiates to his neck. Patient reported associated signs and symptoms of orthopnea and cough. Patient denies any other signs and symptoms. Symptoms are aggravated or relieved by nothing. Patient decided to present to the hospital due to worsening symptoms. Hospital Course: Patient was admitted and treated for the following diagnosis Chest pain R/O Troponin trended negative Cardiology Dr. Navas- [facility] with no intervention needed nuclear stress test reports "Small focus of stress-induced ischemia involving the LV apex." Echocardiogram reports "EF 50-55%, mild tricuspid regurg, mild concentril left ventricular hypertrophy, left atrial enlargement." ESRD Volume overload hemodialysis 07/09 and 07/11 Nephrology cleared for discharge DM2 Glucose well controlled Anemia of CKD H&H stable Elevated LFTs Unknown etiology. Monitor LFT. Hypertension Continued home antihypertensives. Hydralazine PRN On 07/11/24, Isiah was seen on morning rounds and deemed hemodynamically stable. Dr. Isabel and Dr. Navas has cleared his for discharge. Calcium acetate has been prescribed. Follow up with PCP, Dr. Navas, and Dr. Isabel for continued management Physical examination General: AO x3, NAD Neck: Supple, no elevated JVD Heart: S1 S2 present, RRR Lungs: Clear BBS, on RA Abdomen: Soft and nontender on palpation, normal bowel sounds. Extremities: No tenderness, no deformity Skin: no rash Neuro: No focal motor deficit. Normal speech. Psychiatry: Normal mood, no agitation. Vital Signs/Physical Exam: Temp Pulse Resp BP Pulse Ox 97.4 F 73 18 156/76 H 98 07/10/24 16:00 07/10/24 16:00 07/10/24 16:00 07/10/24 16:00 07/10/24 16:00 Laboratory Data at Discharge: WBC 5.60 thou/uL (4.3-10.9) 07/09/24 04:57 Hgb 9.5 g/dL (13.6-17.9) L 07/09/24 04:57 Hct 27.9 % (39.6-49.0) L 07/09/24 04:57 Plt Count 202 thou/uL (152-406) 07/09/24 04:57 PT 11.9 SECONDS (9.4-12.5) 07/08/24 12:08 INR 1.13 07/08/24 12:08 Sodium 132 mEq/L (136-145) L 07/09/24 04:57 Potassium 4.1 mEq/L (3.5-5.1) 07/09/24 04:57 BUN 53 mg/dL (7-18) H 07/09/24 04:57 Creatinine 8.47 mg/dL (0.70-1.30) H 07/09/24 04:57 Glucose 132 mg/dL (74-106) H 07/09/24 04:57 Phosphorus 4.7 mg/dL (2.5-4.9) 07/08/24 18:07 Magnesium 2.6 mg/dL (1.6-2.4) H 07/08/24 18:07 Total Bilirubin 0.7 mg/dL (0.2-1.0) 07/08/24 12:08 AST 103 U/L (15-37) H 07/08/24 12:08 ALT 126 U/L (16-61) H 07/08/24 12:08 Alkaline Phosphatase 143 U/L (45-117) H 07/08/24 12:08 Triglycerides 139 mg/dL (<150) 07/09/24 04:57 Cholesterol 112 mg/dL (<200) 07/09/24 04:57 HDL Cholesterol 32 mg/dL (40-60) L 07/09/24 04:57 Cholesterol/HDL Ratio 3.50 07/09/24 04:57 Home Medications: Insulin Glargine,Hum.rec.anlog [Lantus] 15 unit SQ DAILY 04/15/24 Insulin Lispro [Humalog] 4 unit SQ TIDWM 04/15/24 Losartan Potassium [Cozaar*] 50 mg PO BID #60 tab 04/16/24 Amlodipine [Norvasc*] 5 mg PO BID 07/09/24 Calcium Acetate [Phoslo*] 667 mg PO TIDWM 30 Days #90 tab 07/10/24 New Medications: Calcium Acetate [Phoslo*] 667 mg PO TIDWM 30 Days #90 tab Physician Discharge Instructions: 1. Please call and schedule a follow-up appointment with your PCP in 3-5 days - Please follow-up with your PCP for medication refills/adjustments 2. Please call and schedule a follow-up appointment with Dr. Navas in one week -Review ECHO, stress test, and heart cath results 3. Please call and schedule a follow-up appointment with Dr. Jhaveri/Alivia in one week -Continue with established days for dialysis 4. Continue heart healthy and renal diet 5. activity restriction, do not lift greater than 10 pounds for three days 6. Return to the ED if symptoms worsen New medications Calcium acetate 667 mg three times daily Followup: Sanju Bunch DO [ACTIVE - CAN ADMIT] - NONE,NONE [Primary Care Provider] - Wilder Navas MD [ACTIVE - CAN ADMIT] -
--- NOTE | 2024-07-10 18:22 | PN ---
Date of Progress Note: 07/10/2024 Subjective: Seen by bedside. He denies having any chest pain. Stress test was done, showed small a pical ischemia and his troponin was borderline. Review of Systems: No chest pain or shortness of breath. No nausea, vomiting, diarrhea. Has orthopnea. No fever. All other systems reviewed, they are negative. Physical Examination: Vital Signs: Reviewed. Head and Neck: Pupils are equal, reactive to light. Intact eye movements. No JVD, no cervical lymp hadenopathy. Neck is supple. Thyroid is not enlarged. Lungs: Decreased breathing sounds. Faint crackles in bases. No accessory muscle use or muscle retr action. Heart: Regular rate and rhythm. No extra sounds. Abdomen: Soft, nontender. Bowel sounds positive. No organomegaly. No masses or hernia. No rigidi ty or rebound. Extremities: No edema, clubbing, cyanosis. Intact pulses. Skin: No rash. No nodules. Neuro: Alert, awake, oriented x3. No acute focal deficits appreciated. Investigations: Labs reviewed. Assessment/recommendation: 1. Chest discomfort with positive troponin. Mildly positive stress test. We will perform coronary a ngiogram to identify the coronary anatomy. Continue baby aspirin and statin. 2. End-stage renal disease. The patient still looks fluid overloaded, needs diuresis. There is pulm onary hypertension on the echo. 3. Hypertension. Blood pressure is elevated. I will defer to Nephrology to manage blood pressure as blood pressure drops during dialysis. SR/MODL Voice ID: [id number] Report ID: [id number]
--- NOTE | 2024-07-10 20:07 | OP ---
Date of Procedure: 07/10/2024 Surgeon: ALLYSSA SHOOK Procedures Performed: 1. Selective cholangiogram. 2. Left heart catheterization. 3. Fractional flow reserve of distal right coronary artery stenosis, which was significant at 0.83. Indication: Chest pain with positive stress test. Access: Right common femoral artery [place], closed with 6[place] Angio-Seal. Complications: None. Bleeding: Less than 50 mL. Total Sedation Time: 1 hour. Description Of Procedure: After risks, benefits, and alternatives were explained, patient agreed to procedure, signed informed consent. The patient was brought into cardiac catheterization laboratory, prepped and draped in usual sterile fashion. Then, I accessed right common femoral artery using jamaal ropuncture kit, ultrasound guidance, fluoroscopy, placed 5-[place] sheath and took a 4[place] JL4 catheter into the aortic root over a J-wire, engaged left main, took standard views and exchange d for 4[place] JR4 catheter, engaged the RCA, took standard views, and the catheter was pushed over t he wire into the LV, measured the LVEDP. Pullback did not record any gradient. Then, gave systemic heparin to assure ACT level above 250 throughout the procedure and took a 6[place] JR4 guide into the aortic root over a J-wire, and then took FFR pressure wire into the aortic root and pressures were e qualized and then engaged the RCA and sent the wire into the distal RCA, performed FFR using Lexiscan and lowest value was 0.83. The wire was pulled back and there was no significant drift. Final patsy ogram was satisfactory post FFR procedure. Then, guide was removed. Sheath was removed. 6-[place] A ngio-Seal was used for closure with good hemostasis. Findings: 1. Left main is normal. 2. LAD is proximally with luminal irregularity. The mid segment is diffuse, long, 30% stenosis. Lizzy gonal branches with luminal irregularities. 3. Left circumflex: Moderate size, proximal 30% stenosis. OM branch is normal. Rest of it is william l. 4. RCA: Very large and dominant. It has proximal 60% stenosis, mid 40% stenosis focal, and then 30% stenosis and distally there is 50% to 60% stenosis, but FFR is negative at 0.83. 5. Elevated LVEDP. LVEDP at 30-35 mmHg. Conclusion: 1. Moderate coronary artery disease, especially the RCA with negative FFR of 0.83. 2. Elevated LVEDP. Recommendation: Fluid management via dialysis. SR/MODL Voice ID: [id number] Report ID: [id number]
[2024-07-11 08:30] VITALS: BP 140/65; TEMP 97.8
--- NOTE | 2024-07-11 12:08 | PN ---
Date of Progress Note: 07/11/2024 Subjective: The patient was seen and examined at bedside. During dialysis, he denies any complaints . Objective: Vital Signs: Have been reviewed and are stable. General: He appears in no acute distress. HEENT: Shows atraumatic head. Lungs: Clear to auscultation. Extremities: Right arm AV fistula in place. Dialysis seems to be going well. Left leg with no evid ence of edema. Laboratory Data: Consistent with ESRD and anemia with hemoglobin of 9.5, consistent with ESRD as wel l. Current Medications: Have been reviewed in detail. Impression: 1. End-stage renal disease, on dialysis. The patient is on Saturday, , Saturday dialysis and getting scheduled dialysis as planned. 2. Shortness of breath secondary to fluid overload and cardiogenic pulmonary edema. The patient is g etting ultrafiltration done through dialysis to establish dry weight. 3. Hzc-CP-vdlcvjlya myocardial infarction. The patient underwent heart catheterization. No stents w ere placed. 4. Chronic hypertension and heart disease, stable. 5. Type 2 diabetes with diabetic chronic kidney disease. Continue current regimen. Plan: The patient is overall doing okay today. He has remained stable from a cardiovascular standpo int and is able to tolerate dialysis well. Continue aggressive ultrafiltration through dialysis and monitor volume status closely. He is okay to be discharged from Nephrology standpoint. VV/MODL Voice ID: [id number] Report ID: [id number]
--- NOTE | 2024-07-13 12:23 | EKG ---
Test Date: 2024-07-08 Test Time: 11:19:56 Aerosol Supervisor: JOSE ALBERTO MEASUREMENT RESULTS: Intervals: Rate: 71 ID: [id number] QRSD: 88 QT: 454 QTc: 493 [place]: P: 37 ID: [id number] QRS: 20 T: 115 INTERPRETIVE STATEMENTS: Normal sinus rhythm T wave abnormality, consider lateral ischemia Prolonged QT Abnormal ECG Compared to ECG 12/16/2023 13:44:40 Possible ischemia now present T-wave abnormality still present Electronically Signed On 07-13-24 12:15:49 [employer] ENGINEER by Ravinder Lopez
== END 2024-07-11 16:59 | disposition home or self-care (01) | DRG 280 ==
LOC: ER 11:08 → ERHOLD 16:18 → 2ND 20:03
PROVIDERS: ADMIT Internal Medicine; ATTEND Internal Medicine
PROC: 5A1D70Z Performance of Urinary Filtration, Intermittent, Less than 6 Hours Per Day (ICD-10-PCS; 2024-07-08)
PROC: 4A023N7 Measurement of Cardiac Sampling and Pressure, Left Heart, Percutaneous Approach (ICD-10-PCS; principal; 2024-07-10)
PROC: B2111ZZ Fluoroscopy of Multiple Coronary Arteries using Low Osmolar Contrast (ICD-10-PCS; 2024-07-10)
DX: I13.2 Hypertensive heart and chronic kidney disease with heart failure and with stage 5 chronic kidney disease, or end stage renal disease (principal); I50.33 Acute on chronic diastolic (congestive) heart failure; I21.4 Non-ST elevation (NSTEMI) myocardial infarction; N18.6 End stage renal disease; E87.1 Hypo-osmolality and hyponatremia; N25.81 Secondary hyperparathyroidism of renal origin; E11.22 Type 2 diabetes mellitus with diabetic chronic kidney disease; D63.1 Anemia in chronic kidney disease; E87.70 Fluid overload, unspecified; I07.1 Rheumatic tricuspid insufficiency; I27.20 Pulmonary hypertension, unspecified; I25.10 Atherosclerotic heart disease of native coronary artery without angina pectoris; R79.89 Other specified abnormal findings of blood chemistry; Z99.2 Dependence on renal dialysis; Z79.4 Long term (current) use of insulin; Z89.511 Acquired absence of right leg below knee; Z86.711 Personal history of pulmonary embolism; Z79.899 Other long term (current) drug therapy; Z86.718 Personal history of other venous thrombosis and embolism
CPT/HCPCS: 36415; 71045; 76937; 78452; 80048; 80061; 80076; 82947; 83735; 83880; 84100; 84439; 84443; 84484; 85025; 85347; 85610; 90935; 93005; 93017; 93306; 93458; 93571; 99285; A9500; C1760; C1769; C1893; G0269; J0360; J0461; J1644; J2003; J2250; J2785; J3010; J7040; P9047; Q9966

== ENCOUNTER 2025-02-26 08:58 | Emergency (ER) | payer OTHER ==
[2025-02-26] MEDS ORDERED: HYDROCODONE/CHLORPHEN 5 ML/OSYR ONE (09:28)
--- NOTE | 2025-02-26 09:55 | RAD REPORT ---
EXAM: Chest Single View HISTORY: 50 years Male COUGH COMPARISON: 07/08/2024 FINDINGS: LUNGS/PLEURA: The lungs are clear. No pleural effusions or pneumothorax. No pulmonary edema. CARDIAC/MEDIASTINUM: The cardiac silhouette is within normal limits. UPPER ABDOMEN: No significant abnormality. BONES: No acute abnormality. LINES/TUBES/OTHER: N/A IMPRESSION: No evidence of acute cardiopulmonary disease. Improved aeration from prior.
[2025-02-26 09:56] LABS: Influenza A Ag Negative; Influenza B Ag Negative; SARS-CoV-2 Antigen Rapid Res Negative (Negative)
[2025-02-26 10:55] LABS: Absolute Lymphocytes (CBC) 1.7 K/uL (0.7-4.9); Hematocrit 39.6 % (39.6-49.0); Hemoglobin 13.2 g/dL (13.6-17.9); MCH 31.9 pg (27.0-35.0); MCHC 33.4 g/dL (32.0-36.0); MCV 95.3 fL (80-100); MPV 9.2 fL (7.6-11.3); Nucleated RBC Absolute Count 0.0 (0-0); Nucleated Red Blood Cells % 0.3 % (0-0); RBC Red Blood Cell Count 4.16 M/uL (4.33-5.43); White Blood Count 10.80 thou/uL (4.3-10.9)
[2025-02-26 11:33] LABS: Anion Gap 13.9 mEq/L (5.0-15.0); BUN Blood Urea Nitrogen 40.0 mg/dL (7-18); Glucose Level 270.0 mg/dL (74-106); Potassium 4.9 mEq/L (3.5-5.1); Troponin High Sensitivity 22.9 pg/mL (<58.9)
[2025-02-26 11:59] LABS: Anisocytosis SLIGHT; Blood Morphology Comment NOTED (NOT SEEN); Differential Total Cells Count 100; Macrocytosis SLIGHT; Segmented Neutrophils 70 % (40-80)
--- NOTE | 2025-02-26 12:05 | EDPHYS ---
Physician Documentation [facility] Name: Isiah Kidd Age: 50 yrs Sex: Male : 1975 Arrival Date: 02/26/2025 Time: 08:58 Bed 8 Private MD: ED Physician Dillon Amado HPI: 02/26 09:05 This 50 yrs old Male presents to ER via Unassigned with complaints of cough, jh7 back pain. 09:05 50-year-old male with a past medical history of ESRD with dialysis jh7 Saturday//Saturday, hypertension, and diabetes presents to the ER complaining of a persistent cough for the past 3 days with mid upper back pain starting this morning. He denies any fever, chest pain, or shortness of breath. No other complaints at this time.. Historical: - Allergies: 09:12 No Known Allergies; iw - PMHx: 09:12 Dialysis; Diabetes - NIDDM; Fisutla- Right Arm; Hypertensive disorder; kidney disease; iw - PSHx: 09:12 RIGHT BKA; iw ROS: 09:05 Constitutional: Per HPI jh7 Exam: 09:05 Constitutional: This is a well developed, well nourished patient who is awake, alert, jh7 and in no acute distress. Head/Face: Normocephalic, atraumatic. 09:05 Neck: Trachea midline, no thyromegaly or masses palpated, and no cervical lymphadenopathy. Supple, full range of motion without nuchal rigidity, or vertebral point tenderness. No Meningismus. Cardiovascular: Regular rate and rhythm with a normal S1 and S2. No gallops, murmurs, or rubs. Normal PMI, no JVD. No pulse deficits. Abdomen/GI: Soft, non-tender, with normal bowel sounds. No distension or tympany. No guarding or rebound. No evidence of tenderness throughout. Back: No spinal tenderness. No costovertebral tenderness. Full range of motion. Skin: Warm, dry with normal turgor. Normal color with no rashes, no lesions, and no evidence of cellulitis. MS/ Extremity: Pulses equal, no cyanosis. Neurovascular intact. Full, normal range of motion. Neuro: Awake and alert, GCS 15, oriented to person, place, time, and situation. Motor strength 5/5 in all extremities. Sensory grossly intact. Normal gait. 09:05 ENT: Nose: is normal, Posterior pharynx: pooling of secretions, that are mild, 09:05 Respiratory: the patient does not display signs of respiratory distress, Respirations: normal, Breath sounds: are clear throughout, Respiratory rate: 18 Persistent, hacking cough noted on exam, Vital Signs: 09:13 BP 181 / 96; Pulse 67; Resp 19; Temp 98.3; Pulse Ox 99% on R/A; iw 10:20 BP 188 / 92; Pulse 60; Resp 18 S; Pulse Ox 96% ; ar8 12:30 BP 171 / 104; Pulse 62; Resp 19; Pulse Ox 97% on R/A; ar8 MDM: 09:01 Medical Screening Exam initiated [facility] 12:10 Differential diagnosis: URI, bronchitis, pneumonia, sinusitis, allergic rhinitis, AMI, [facility] NSTEMI, hyperkalemia. Data reviewed: vital signs, nurses notes, lab test result(s), EKG, radiologic studies, plain films. I considered the following discharge prescriptions or medication management in the emergency department Medications were administered in the Emergency Department. See MAR. Independent interpretation of the following test(s) in the Emergency Department EKG: See my EKG interpretation above X-Ray: My interpretation is No pneumonia. Historians other than the Patient: Spouse/Significant Other: . Care significantly affected by the following chronic conditions: Diabetes, Hypertension, Chronic Kidney Disease. Counseling: I had a detailed discussion with the patient and/or guardian regarding the historical points, exam findings, and any diagnostic results supporting the discharge/admit diagnosis, to return to the emergency department if symptoms worsen or persist or if there are any questions or concerns that arise at home. Response to treatment: the patient's symptoms have markedly improved after treatment. ED course: Patient reported significant improvement in cough at the time of discharge. No significant findings were found on labs or imaging. The patient was advised to follow-up with his PCP.. 02/26 09:11 Order name: COVID-19 Ag + Flu A+B Ag; Complete Time: 10:00 [facility] 02/26 10:02 Order name: Basic Metabolic Panel; Complete Time: 11:58 [facility] 02/26 10:02 Order name: CBC with Diff; Complete Time: 12:03 [facility] 02/26 10:02 Order name: Troponin HS; Complete Time: 11:58 [facility] 02/26 10:58 Order name: Manual Differential; Complete Time: 12:03 EDMS 02/26 09:11 Order name: XRAY CXR (1 view); Complete Time: 10:00 [facility] 02/26 09:11 Order name: EKG - Nurse/Tech; Complete Time: 09:30 [facility] 02/26 10:02 Order name: Cardiac monitoring; Complete Time: 10:19 [facility] 02/26 10:02 Order name: IV Saline Lock; Complete Time: 10:38 [facility] 02/26 10:02 Order name: Labs collected and sent; Complete Time: 10:38 [facility] 02/26 10:43 Order name: Labs - recollect needed: recollect green top / hemolyzed per lab; Complete eb Time: 11:01 EC:26 Rate is 64 beats/min. Rhythm is regular. QRS Wheeler is Normal. SD interval is normal. QRS 7 interval is normal. QT interval is prolonged at 448 msec. No Q waves. T waves are Peaked in leads V2, V3. Clinical impression: Abnormal EKG without significant change. Administered Medications: 09:30 Drug: Tussionex Pennkinetic ER PO Suspension 5 ml PO once Route: PO; db 12:30 Follow up: Response: No adverse reaction ar8 Disposition Summary: 02/26/25 12:04 Discharge Ordered Notes: Location: Home [facility] Problem: new [facility] Symptoms: have improved [facility] Condition: Stable [facility] Diagnosis - Acute bronchitis, unspecified [facility] Followup: [facility] - With: Private Physician - When: 2 - 3 days - Reason: Recheck today's complaints Discharge Instructions: - Discharge Summary Sheet [facility] - Acute Bronchitis, Adult [facility] Forms: - Medication Reconciliation Form [facility] - Patient Portal Instructions [facility] - Leadership Thank You Letter [facility] Prescriptions: - ProAir RespiClick 90 mcg/actuation Inhalation Aerosol Powder, Breath Activated - administer 1 inhalation INHALATION route every 4 to 6 hours As needed as needed [facility] for shortness of breath or wheezing; 1 Each; Refills: 0, Product Selection Permitted - Tessalon Perles 100 mg Oral Capsule - take 1 capsule ORAL route every 8 hours As needed; 15 capsule; Refills: 0, [facility] Product Selection Permitted Addendum: 03/03/2025 06:57 Co-signature as Attending Physician, Dillon Amado MD I agree with the assessment and c lainez plan of care. Signatures: Dispatcher [employer] Dillon Titus MD MD cha Williams, Irene, RN RN iw Suzi, Melonie Mckenzie, BARREL PLANER BARREL PLANER jh7 Sena Caraballo RN RN Jordan Kidd RN ar8 Corrections: (The following items were deleted from the chart) 02/26 09:12 PMHx: Dialysis (T; iw 09:12 PMHx: Dialysis (T; iw
--- NOTE | 2025-02-26 12:05 | ER ---
Nurse's Notes [facility] Name: Isiah Kidd Age: 50 yrs Sex: Male : 1975 Arrival Date: 02/26/2025 Time: 08:58 Bed 8 Private MD: Diagnosis: Acute bronchitis, unspecified Presentation: 02/26 09:11 Chief complaint: Patient states: cough for a few days, this morning has pain to right iw rib area around to back, feels nauseated, no vomiting , is a T, TH, Sat dialysis pt. Coronavirus screen: At this time, the client does not indicate any symptoms associated with coronavirus-19. Ebola Screen: No symptoms or risks identified at this time. Initial Sepsis Screen: Does the patient meet any 2 criteria? No. Patient's initial sepsis screen is negative. Does the patient have a suspected source of infection? No. Patient's initial sepsis screen is negative. Risk Assessment: Do you want to hurt yourself or someone else? Patient reports no desire to harm self or others. Onset of symptoms was February 26, 2025. 09:11 Method Of Arrival: Wheelchair iw 09:11 Acuity: MONIKA 3 iw Historical: - Allergies: 09:12 No Known Allergies; iw - PMHx: 09:12 Dialysis; Diabetes - NIDDM; Fisutla- Right Arm; Hypertensive disorder; kidney disease; iw - PSHx: 09:12 RIGHT BKA; iw Screenin:42 [facility] ED Fall Risk Assessment (Adult) History of falling in the last 3 months, db including since admission No falls in past 3 months (0 pts) Confusion or Disorientation No (0 pts) Intoxicated or Sedated No (0 pts) Impaired Gait Yes (1 pt) Mobility Assist Device Used Yes (1 pt) Altered Elimination Yes (1 pt) Score/Fall Risk Level 3 or more points = High Risk Oriented to surroundings, Maintained a safe environment. Abuse screen: Denies threats or abuse. Denies injuries from another. Nutritional screening: No deficits noted. Tuberculosis screening: No symptoms or risk factors identified. Assessment: 10:41 Reassessment: Patient appears in no apparent distress at this time. Patient and/or db family updated on plan of care and expected duration. Pain level reassessed. Patient is alert, oriented x 3, equal unlabored respirations, skin warm/dry/pink. General: Appears in no apparent distress. comfortable, Behavior is calm, cooperative. Pain: Complains of pain in abdomen. Neuro: Level of Consciousness is awake, alert, obeys commands, Oriented to person, place, time, situation. Respiratory: Airway is patent Respiratory effort is even, unlabored, Respiratory pattern is regular, symmetrical. Vital Signs: 09:13 BP 181 / 96; Pulse 67; Resp 19; Temp 98.3; Pulse Ox 99% on R/A; iw 10:20 BP 188 / 92; Pulse 60; Resp 18 S; Pulse Ox 96% ; ar8 12:30 BP 171 / 104; Pulse 62; Resp 19; Pulse Ox 97% on R/A; ar8 ED Course: 09:00 Patient arrived in ED. al6 09:01 Melonie Bernal FNP is PHCP. jh7 09:01 Dillon Amado MD is Attending Physician. jh7 09:12 Triage completed. iw 09:30 COVID-19 Ag + Flu A+B Ag Sent. pm7 09:30 EKG done, by ED staff, reviewed by Dillon Amado MD. pm7 09:36 Sena Caraballo, RN is Primary Nurse. db 09:46 XRAY CXR (1 view) In Process Unspecified. EDMS 10:32 Initial lab(s) drawn, by me, sent to lab. Inserted saline lock: 20 gauge in left db antecubital area, using aseptic technique. Blood collected. Flushed with 10 mL NS. 10:42 Patient has correct armband on for positive identification. Bed in low position. Call db light in reach. Side rails up X 1. Client placed on continuous cardiac and pulse oximetry monitoring. NIBP monitoring applied. property assessment monitor on. Pulse ox on. NIBP on. Pillow given. 11:02 Lab(s) recollected, by ED staff, sent to lab. db 12:30 No provider procedures requiring assistance completed. Patient did not have IV access ar8 during this emergency room visit. IV discontinued, intact, bleeding controlled, No redness/swelling at site. Pressure dressing applied. Administered Medications: 09:30 Drug: Tussionex Pennkinetic ER PO Suspension 5 ml PO once Route: PO; db 12:30 Follow up: Response: No adverse reaction ar8 Medication: 10:42 VIS not applicable for this client. db Outcome: 12:04 Discharge ordered by . demian 12:30 Discharged to home ambulatory, ar8 12:30 Condition: stable 12:30 Discharge instructions given to patient, family, Instructed on discharge instructions, follow up and referral plans. medication usage, Demonstrated understanding of instructions, follow-up care, medications, Prescriptions given X 1, 12:31 Patient left the ED. ar8 Signatures: Dispatcher [employer] EDLashay Lopes, RN CORNELIO Melonie Bernal FNP FNP jh7 Benton, Danielle RN CORNELIO db Mamie Vaca Andrea, RN RN ar8 Sarah Olmedo pm7 Corrections: (The following items were deleted from the chart) 09:13 09:12 PMHx: Dialysis (T; [facility] 09:13 09:12 PMHx: Dialysis (T; [facility]
[2025-02-26 12:49] VITALS: TEMP 98.3
[2025-02-26 12:54] VITALS: BP 171/104; O2SAT 97
== END 2025-02-26 12:31 | disposition home or self-care (01) ==
LOC: ER 08:58
DX: J20.9 Acute bronchitis, unspecified (principal); Z11.52 Encounter for screening for COVID-19
CPT/HCPCS: 36415; 71045; 80048; 84484; 85025; 87428; 93005; 99285